=== PATIENT | female | born 1970 | race Caucasian/White ===

== ENCOUNTER 2016-09-10 16:30 | Emergency (ER) | payer OTHER ==
[2016-09-10 16:42] VITALS: BP 148/105
--- NOTE | 2016-09-10 17:30 | UC ---
Respiratory Complaint HPI - HPI Summary HPI Summary: 45 year old female with complaints of fever, cough, chest congestion and sore throat for 2 weeks. She is feeling worse today, chills at times. Cough has become harsh and causing her to vomit. She is tearful stating stating her energy is low. She denies chest pain or difficulty breathing Heavy everyday smoker - History of Current Complaint Chief Complaint: UCRespiratory Stated Complaint: COUGH,ST,CONGESTION Time Seen by Provider: 09/10/16 16:42 Hx Obtained From: Patient ?: No Onset/Duration: Gradual Onset, Lasting Weeks - 2, Worse Since - yesterday and today Severity Initially: Mild Severity Currently: Severe Pain Scale Used: 0-10 Numeric - 9 - she is tearful with complaints of general illness Character: Cough: Productive Aggravating Factors: Exertion, Deep Breaths, Recumbent Position Alleviating Factors: Nothing Associated Signs And Symptoms: Positive: Fever, Chills, Wheezing, URI, Nasal Congestion, Sinus Discomfort. Negative: Dyspnea, Pleuritic Chest Pain, Hemoptysis, Dizziness, Calf Pain, Calf Swelling, Edema, Hoarseness - Risk Factors Pulmonary Embolism Risk Factors: Smoking Cardiac Risk Factors: Smoking Pseudomonas Risk Factors: Negative Tuberculosis Risk Factors: Smoking - Allergies/Home Medications Allergies/Adverse Reactions: Allergies Allergy/AdvReac Type Severity Reaction Status Date / Time Levofloxacin [From Levaquin] Allergy Intermediate See Comment Verified 09/10/16 16:43 PMH/Surg Hx/FS Hx/Imm Hx Previously Healthy: Yes Endocrine History Of: Denies: Diabetes, Thyroid Disease Cardiovascular History Of: Reports: Hypertension Denies: Cardiac Disorders, Pacemaker/ICD Respiratory History Of: Denies: COPD, Asthma GI/ History Of: Denies: Ulcer, Kidney Stones, Renal Disease Neurological History Of: Reports: Migraine Psychological History Of: Reports: Anxiety - Surgical History Surgical History: Yes Surgery Procedure, Year, and Place: hysteroscopy, laparoscopy, hysterectomy ( 2005), D&C - Family History Known Family History: Positive: Hypertension Negative: Diabetes - Social History Occupation: Employed Full-time Lives: With Family Alcohol Use: None 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 Substance Use Type: None Substance Use Comment - Amount & Last Used: STOPPED 06/14/15 Smoking Status (MU): Light Every Day Tobacco Smoker Type: Cigarettes Amount Used/How Often: 1/2 PPD Length of Time of Smoking/Using Tobacco: 28 YEARS Have You Smoked in the Last Year: Yes When Did the Patient Quit Smoking/Using Tobacco: about a week ago Cessation Counseling: Counseled 3+Min - 10 Min - she will consider quiting - Immunization History Most Recent Tetanus Shot: 8 yrs ago Review of Systems Constitutional: Chills, Fatigue Skin: Negative Eyes: Negative ENT: Sore Throat, Nasal Discharge Respiratory: Cough Cardiovascular: Negative Gastrointestinal: Negative Genitourinary: Negative Motor: Negative Neurovascular: Negative Musculoskeletal: Myalgia Neurological: Headache Psychological: Negative All Other Systems Reviewed And Are Negative: Yes Physical Exam Triage Information Reviewed: Yes Appearance: Well-Nourished, Ill-Appearing - tearful, Pain Distress - tearful Vital Signs: Initial Vital Signs Temp 100.8 F 09/10/16 16:39 Pulse 116 09/10/16 16:39 Resp 18 09/10/16 16:39 BP 148/105 09/10/16 16:39 Pulse Ox 99 09/10/16 16:39 Vital Signs Reviewed: Yes Eyes: Positive: Conjunctiva Clear. Negative: Discharge ENT: Positive: Pharyngeal erythema, Nasal congestion, Nasal drainage - thin yellow and significant post nasal mucus, TMs normal, Tonsillar swelling - 1+ bilateral, Other: - mod maxillary sinus pain and pressure with palpation Neck: Positive: Supple, Nontender, Enlarged Nodes @ - mild bilateral ac Respiratory: Positive: Decreased breath sounds, Wheezing - scattered throughout , Other: - harsh wet cough noted on exam Cardiovascular: Positive: RRR, No Murmur Musculoskeletal: Positive: Strength Intact, ROM Intact Neurological: Positive: Alert, Muscle Tone Normal Psychological: Positive: Age Appropriate Behavior - pleasant and cooperative throughout exam, Consolable Skin: Negative: rashes, breakdown UC Diagnostic Evaluation - Laboratory O2 Sat by Pulse Oximetry: 99 Respiratory Course/Dx - Course Course Of Treatment: chest xray. rapid strep. duo-nebulizer treatment - Differential Dx/Diagnosis Differential Diagnosis/HQI/PQRI: Bronchitis, Lower Resp Infection, Sinusitis Provider Diagnoses: Acute bronchitis. sinusitis Discharge - Discharge Plan Condition: Stable Disposition: HOME Prescriptions: Albuterol HFA INHALER* [Ventolin HFA Inhaler*] 1 - 2 puff INH Q4H PRN #1 mdi PRN Reason: cough or wheezing Azithromycin TAB* [Zithromax TAB (Z-PRECIOUS)*] 250 mg PO .Z-PRECIOUS INSTRUCTIONS #6 tab predniSONE TAB* [Deltasone TAB*] 40 mg PO DAILY #10 tab Patient Education Materials: Acute Bronchitis (ED), Sinusitis (ED) Additional Instructions: PLEASE STOP SMOKING
[2016-09-10] MEDS ORDERED: Albuterol/Ipratropium NEB.SOL* Albuterol 2.5 MG/Ipratropium 0.5 MG 3 ML INH ONE (17:33)
--- NOTE | 2016-09-10 17:59 | RAD ---
HISTORY: Cough and fever COMPARISONS: None VIEWS: 2: Frontal dual-energy and lateral views of the chest. FINDINGS: CARDIOMEDIASTINAL SILHOUETTE: The cardiomediastinal silhouette is normal. GABRIELA: The gabriela are normal. PLEURA: The costophrenic angles are sharp. No pleural abnormalities are noted. LUNG PARENCHYMA: The lungs are clear. ABDOMEN: The upper abdomen is clear. There is no subphrenic gas. BONES AND SOFT TISSUES: No bone or soft tissue abnormalities are noted. OTHER: None. IMPRESSION: NO ACTIVE CARDIOPULMONARY DISEASE.
== END 2016-09-10 18:40 | disposition home or self-care (01) ==
LOC: UCEAST 16:30
DX: J20.9 Acute bronchitis, unspecified (principal); J32.9 Chronic sinusitis, unspecified; F17.210 Nicotine dependence, cigarettes, uncomplicated; Z88.1 Allergy status to other antibiotic agents; Z87.898 Personal history of other specified conditions
CPT/HCPCS: 71020; 87651; 99212; A9270-GY; G0463

== ENCOUNTER 2016-12-04 12:48 | Emergency (ER) | payer OTHER ==
[2016-12-04 14:14] VITALS: BP 142/93
--- NOTE | 2016-12-04 14:18 | UC ---
UC General HPI - HPI Summary HPI Summary: complaint of needing a medication refill she is in btween PCP-Dr Soni-discharged from practice looking for new PCP takes klonopin for anxiety and usually takes 2-3 per day- has been on medication for approx 5 years last dose of kloniopin yesterday using hydroxyzine to sleep anxiety level today is high due to lack of medication concerned about not having medication - stress level high has to work tomorrow and concerned she can't without gerald medication denies depression and suicidal ideation no history of suicide attempts - History of Current Complaint Chief Complaint: UCMedRefill Stated Complaint: MED REFILL Time Seen by Provider: 12/04/16 13:39 Hx Obtained From: Patient - Allergy/Home Medications Allergies/Adverse Reactions: Allergies Allergy/AdvReac Type Severity Reaction Status Date / Time Levofloxacin [From Levaquin] Allergy Intermediate See Comment Verified 12/04/16 14:14 PMH/Surg Hx/FS Hx/Imm Hx Previously Healthy: Yes Endocrine History Of: Denies: Diabetes, Thyroid Disease Cardiovascular History Of: Reports: Hypertension Denies: Cardiac Disorders, Pacemaker/ICD Respiratory History Of: Denies: COPD, Asthma GI/ History Of: Denies: Ulcer, Kidney Stones, Renal Disease Neurological History Of: Reports: Migraine Psychological History Of: Reports: Anxiety Other History Of: Hepatitis C - Surgical History Surgical History: Yes Surgery Procedure, Year, and Place: hysteroscopy, laparoscopy, hysterectomy ( 2005), D&C - Family History Known Family History: Positive: Hypertension Negative: Cardiac Disease, Diabetes - Social History Occupation: Employed Full-time Alcohol Use: None 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 Substance Use Type: None Substance Use Comment - Amount & Last Used: STOPPED 06/14/15 Smoking Status (MU): Light Every Day Tobacco Smoker Type: Cigarettes Amount Used/How Often: 1/2 PPD Length of Time of Smoking/Using Tobacco: 28 YEARS Have You Smoked in the Last Year: Yes When Did the Patient Quit Smoking/Using Tobacco: about a week ago Cessation Counseling: Patient Advised to Stop - Immunization History Most Recent Tetanus Shot: 8 yrs ago Review of Systems Constitutional: Negative Skin: Negative Eyes: Negative ENT: Negative Respiratory: Negative Cardiovascular: Negative Gastrointestinal: Negative Genitourinary: Negative Motor: Negative Neurovascular: Negative Musculoskeletal: Negative Neurological: Negative Psychological: Negative All Other Systems Reviewed And Are Negative: Yes Physical Exam Triage Information Reviewed: Yes Appearance: Well-Appearing, No Pain Distress, Well-Nourished Vital Signs: Initial Vital Signs Temp 97.8 F 12/04/16 14:09 Pulse 98 12/04/16 14:09 Resp 20 12/04/16 14:09 BP 142/93 12/04/16 14:09 Pulse Ox 99 12/04/16 14:09 Vital Signs Reviewed: Yes Eyes: Positive: Conjunctiva Clear ENT: Positive: Pharynx normal, TMs normal Neck: Positive: No Lymphadenopathy Respiratory: Positive: Lungs clear, Normal breath sounds, No respiratory distress Cardiovascular: Positive: RRR, No Murmur, Pulses Normal Abdomen Description: Positive: Nontender, Soft Bowel Sounds: Positive: Present Musculoskeletal: Positive: No Edema Neurological: Positive: Alert Psychological Exam: Normal Psychological: Positive: Other: - good eye contact, well groomed, appropriate eye contact Skin Exam: Normal Course/Dx - Course Course Of Treatment: exam completed. no hx of suicide attempts, suicidal ideation. will rx klonopin for 7 days - Differential Dx - Multi-Symptom Provider Diagnoses: anxiety Discharge - Discharge Plan Condition: Stable Disposition: HOME Prescriptions: Clonazepam [Klonopin] 2 mg PO TID PRN #21 tab MDD 3 PRN Reason: Anxiety - Severe Patient Education Materials: Anxiety (ED) Forms: *Work Release Referrals: David Soni MD [Primary Care Provider] - Additional Instructions: Your blood pressure is elevated. Please contact your primary care provider within 1 day -4 weeks for further evaluation. Restart your klonopin as needed and continue to find a new primary care provider. Please review your discharge instructions. If your symptoms do not improve please call your primary care provider or return to urgent care.
== END 2016-12-04 14:48 | disposition home or self-care (01) ==
LOC: UCEAST 12:48
DX: F41.9 Anxiety disorder, unspecified (principal); I10 Essential (primary) hypertension; F17.210 Nicotine dependence, cigarettes, uncomplicated
CPT/HCPCS: 99212; G0463

== ENCOUNTER 2016-12-29 10:17 | Emergency (ER) | payer OTHER ==
[2016-12-29 10:45] VITALS: BP 120/89
--- NOTE | 2017-01-09 15:01 | UC ---
juvenal Bernabe Timothy, scribed for Silvia Vale MD on 12/29/16 at 1153 . General HPI - HPI Summary HPI Summary: Emperatriz Torres is a 46 yo female presenting to [facility] in need of a refill for her Rx for clonazepam 1 mg 2 tab PO up to TID for anxiety. Pt states she received a refill in the ER 12/21/16, however does not have an appointment with her PCP until 01/03/17 and took her last pill last night. She is not in any current pain. Pt denies any suicidal or homicidal ideation. Her MHx includes HTN , migraine, hysterectomy, panic disorder, anxiety, Hep C. Her PCP is [facility]. - History of Current Complaint Chief Complaint: UCMedRefill Stated Complaint: REQUIRED MED REFILL PLEASE Time Seen by Provider: 12/29/16 12:23 Hx Obtained From: Patient Onset/Duration: Sudden Onset, Lasting Days, Still Present Timing: Constant Onset Severity: Moderate Current Severity: Moderate Pain Intensity: 0 Character: anxiety, needs meds Aggravating: nothing Alleviating: nothing Associated Signs & Symptoms: Positive: Agitation, Other - anxiety. Negative: Chest Pain, SOB - Allergy/Home Medications Allergies/Adverse Reactions: Allergies Allergy/AdvReac Type Severity Reaction Status Date / Time Levofloxacin [From Levaquin] Allergy Intermediate See Comment Verified 12/29/16 10:45 Home Medications: Home Medications cloNIDine TAB* [Catapres 0.1 MG TAB*] 0.1 mg PO TID 12/29/16 [History Confirmed 12/29/16] PMH/Surg Hx/FS Hx/Imm Hx Endocrine History Of: Denies: Diabetes, Thyroid Disease Cardiovascular History Of: Reports: Hypertension Denies: Cardiac Disorders, Pacemaker/ICD Respiratory History Of: Denies: COPD, Asthma GI/ History Of: Denies: Ulcer, Kidney Stones, Renal Disease Neurological History Of: Reports: Migraine Psychological History Of: Reports: Anxiety - panic disorder Other History Of: Hepatitis C - Surgical History Surgical History: Yes Surgery Procedure, Year, and Place: hysteroscopy, laparoscopy, hysterectomy ( 2005), D&C - Family History Known Family History: Positive: Hypertension, Other - CVA Negative: Cardiac Disease, Diabetes - Social History Alcohol Use: None Alcohol Amount: last drink few months ago Substance Use Type: Prescribed Substance Use Comment - Amount & Last Used: STOPPED 06/14/15 Smoking Status (MU): Heavy Every Day Tobacco Smoker Type: Cigarettes Amount Used/How Often: 1ppd Length of Time of Smoking/Using Tobacco: 28 YEARS Have You Smoked in the Last Year: Yes When Did the Patient Quit Smoking/Using Tobacco: about a week ago - Immunization History Most Recent Tetanus Shot: 8 yrs ago Review of Systems Constitutional: Negative Skin: Negative Eyes: Negative ENT: Negative Respiratory: Negative Cardiovascular: Negative Gastrointestinal: Negative Genitourinary: Negative Motor: Negative Neurovascular: Negative Musculoskeletal: Negative Neurological: Negative Psychological: Anxious All Other Systems Reviewed And Are Negative: Yes Physical Exam Triage Information Reviewed: Yes Appearance: No Pain Distress, Well-Nourished, Ill-Appearing Vital Signs: Initial Vital Signs Temp 98.1 F 12/29/16 10:39 Pulse 86 12/29/16 10:39 Resp 16 12/29/16 10:39 BP 120/89 12/29/16 10:39 Pulse Ox 99 12/29/16 10:39 Vital Signs Reviewed: Yes Eyes: Positive: Conjunctiva Clear. Negative: Discharge ENT: Positive: Hearing grossly normal. Negative: Muffled/hoarse voice Neck: Positive: Supple, Nontender Respiratory: Positive: Lungs clear, Normal breath sounds, No respiratory distress Cardiovascular: Positive: RRR, No Murmur, Pulses Normal, Brisk Capillary Refill Abdomen Description: Positive: Nontender, Soft. Negative: Distended, Guarding, McBurney's Point Tenderness, Peritoneal Signs Bowel Sounds: Positive: Present Musculoskeletal: Positive: Strength Intact, ROM Intact Neurological: Positive: Alert, Muscle Tone Normal Psychological: Positive: Age Appropriate Behavior, Other: - anxious Skin Exam: Normal Skin: Negative: rashes Course/Dx - Course Course Of Treatment: Emperatriz Overton is a 46 yo female presenting to [facility] for a refill Rx of clonazepam before her PCP appointment 01/03/17 as she ran out last night. Her last refill was by [facility]. I stop consulted and confirms that pt should have run out of meds now, and that she is taking that high dose of clonazepam. Her medication list was reviewed this visit. She has agrred to a contract for safety. She was counseled that her current dosage of clonazepam is extremely large. After clinical examination she will be discharged home with panic disorder and anxiety with appropriate instructions. Pt advised that she cannot use urgent care for a med refill for clonazepam again. - Differential Dx - Multi-Symptom Differential Diagnoses: Metabolic Abnormality, Other - anxiety, panic disorder Provider Diagnoses: panic disorder, anxiety, medication refill, elevated BP without dx of HTN Discharge - Discharge Plan Condition: Stable Disposition: HOME Prescriptions: clonazePAM TAB(*) [Klonopin TAB(*)] 2 mg PO TID PRN #30 tab MDD 6 PRN Reason: Anxiety - Severe Patient Education Materials: Clonazepam (By mouth), Panic Disorder (ED), Anxiety (ED) Referrals: [facility] [Provider Group] - 5 Days Additional Instructions: Please keep your appointment with [facility] 01/03/17. Return to urgent care or the emergency department with any new or recurring symptoms. The documentation as recorded by the juvenal chavez Timothy accurately reflects the service I personally performed and the decisions made by me, Silvia Vale MD.
== END 2016-12-29 12:36 | disposition home or self-care (01) ==
LOC: UCEAST 10:17
DX: F41.0 Panic disorder [episodic paroxysmal anxiety] (principal); Z76.0 Encounter for issue of repeat prescription; R03.0 Elevated blood-pressure reading, without diagnosis of hypertension; G43.909 Migraine, unspecified, not intractable, without status migrainosus; Z88.1 Allergy status to other antibiotic agents; Z86.19 Personal history of other infectious and parasitic diseases; Z90.710 Acquired absence of both cervix and uterus; F17.210 Nicotine dependence, cigarettes, uncomplicated
CPT/HCPCS: 99212; G0463

== ENCOUNTER 2018-10-10 12:10 | Day surgery (SDC) | payer OTHER ==
[~2018-10-10 12:10] MED LIST: Buffered Lidocaine 1% SYRIN* 1 ML/SYRINGE INTRADERM ONE; Dexamethasone IV* 4 MG/ML 1 ML (4 MG) IV SLOW PU ONE; DiMENhydriNATE IV* 50 MG/ML VIAL IV PUSH PRN; Famotidine IV* 10 MG/ML 2 ML (20 mg) IV ONE; Lactated Ringers 1000 ML Bag* 1,000 ML IV SCH; Levalbuterol 0.63MG/3ML NEB* UNIT OF USE INH ONE; Levalbuterol 0.63MG/3ML NEB* UNIT OF USE INH PRN; Naloxone* 0.4 MG/ML 1 ML VIAL IV PRN; Ondansetron TAB* 4 MG PO ONE; PROCHLORPERAZINE INJ 5 MG/ML 2 ML VIAL IV PRN; fentaNYL* 50 MCG/ML 2 ML VIAL (100 MCG VIAL) IV PRN; oxyCODONE/Acetamin 5/325 MG* TAB PO PRN
[2018-10-10] MEDS ORDERED: Dexamethasone IV* 4 MG/ML 1 ML (4 MG) ONE (12:26)
[2018-10-10] MEDS ORDERED: Famotidine IV* 10 MG/ML 2 ML (20 mg) ONE (12:26)
[2018-10-10] MEDS ORDERED: Levalbuterol 0.63MG/3ML NEB* UNIT OF USE INH ONE (12:27)
[2018-10-10] MEDS ORDERED: Ondansetron ODT TAB* 4 MG ONE (12:27)
[2018-10-10] MEDS ORDERED: Atracurium* 10 MG/ML 10 ML VIAL ONE (13:29)
[2018-10-10] MEDS ORDERED: Midazolam* 1 MG/ML 5 ML VIAL (5 MG) ONE (13:29)
[2018-10-10] MEDS ORDERED: fentaNYL* 50 MCG/ML 2 ML VIAL (100 MCG VIAL) ONE (13:29)
[2018-10-10] MEDS ORDERED: Glycopyrrolate IV* 0.2 MG/ML 1 ML VIAL ONE (14:20)
[2018-10-10] MEDS ORDERED: Lidocaine 2% PF * 5 ML VIAL ONE (14:20)
[2018-10-10] MEDS ORDERED: Neostigmine Methylsulfate* 1 MG/ML 10 ML VIAL (1 mg/ml) ONE (14:20)
[2018-10-10] MEDS ORDERED: hydrALAZINE IV* 20 MG/ML VIAL ONE (14:20)
[2018-10-10] MEDS ORDERED: Propofol* 10 MG/ML 20 ML BTL ONE (14:20)
[2018-10-10] MEDS ORDERED: Metoprolol Tartrate IV* 1 MG/ML 5 ML VIAL ONE (14:21)
[2018-10-10 17:18] VITALS: BP 133/92
--- NOTE | 2018-10-10 19:53 | PRO ---
CC: Yoli Bustos MD * DATE OF PROCEDURE: 10/10/18 - ENDO PROCEDURE: Colonoscopy - incomplete due to poor prep. REFERRING PROVIDER: Yoli Bustos MD INDICATIONS: The patient reports intermittent rectal bleeding. She says that her mother has a history of polyps. No other family history of colorectal cancer or polyps. MEDICATIONS: Given by Anesthesia. DESCRIPTION OF PROCEDURE: Full disclosure of risks was reviewed with the patient as detailed on the consent form. The patient was placed in the left lateral decubitus position and monitored with continuous pulse oximetry, capnography, interval blood pressure monitoring, and direct observation. After anorectal examination was performed, the pediatric colonoscope was inserted into the rectum and advanced to the level of the transverse colon. Procedure was aborted due to very poor prep. Findings and interventions are described below. FINDINGS: Anorectal exam was unremarkable. Scope was slowly and carefully advanced into the rectum. Very poor prep was noted with thick liquid and small pieces of solid stool. Scope was advanced to the transverse colon and then procedure was aborted due to worsening of prep as scope was moved more proximally in the colon. On withdrawal at approximately 20 to 25 cm, there was a very large broad-based polyp. This polyp likely measured in the 1.5 to 2 cm range. Biopsies obtained from this polyp. Resection was not attempted given very large amount of liquid stool surrounding the polyp. Scope was withdrawn from the patient. The patient tolerated the procedure well and was recovered in the GI recovery area. IMPRESSION: 1. Incomplete colonoscopy to transverse colon. Procedure aborted due to very poor prep. 2. Large rectal polyp seen at around 25 cm. I am a bit concern that this polyp may have some more advanced features based on its appearance. Biopsies obtained. Attempts not made to resect polyp given very poor prep. FOLLOWUP: 1. We will await pathology. 2. We will plan for repeat colonoscopy with extended prep under anesthesia. We will hold off on scheduling until the results from the polyp biopsy have returned. There is a potential that certain findings may impact the colonoscopy plan. Thank you very much for this referral. [id number]/[facility] #: [id number] MARILUZ
--- NOTE | 2018-10-10 20:43 | PRO ---
CC: Dr. Yoli Bustos * DATE OF PROCEDURE: 10/10/18 - ENDO REFERRING PROVIDER: Yoli Bustos MD PROCEDURE: EGD with biopsy. INDICATIONS: The patient with multiple GI symptoms including pill dysphagia, dysgeusia, and reflux. The patient had stated at last visit that her reflux symptoms were a bit better. She did not feel the omeprazole seemed to help, although I did try to explain to her that her symptoms seemed a little bit better on the medicine. She wished to trial of the medicine. Today, she states that she has not noticed any change off of the Prilosec. MEDICATIONS GIVEN: By Anesthesia. DESCRIPTION OF PROCEDURE: Full disclosure of risks was reviewed with the patient as detailed on the consent form. The patient was placed in the left lateral decubitus position and monitored with continuous pulse oximetry, capnography, interval blood pressure monitoring, and direct observation. A bite -block was placed between the the patient's teeth. An adult gastroscope was then advanced into the mouth down the esophagus, into the stomach, and into the distal duodenum. Findings and interventions are described below. FINDINGS: Upper esophagus was normal in appearance. No rings or strictures noted. GE junction was mildly irregular with some textural change. This was located at around 35 cm. Biopsies obtained. Biopsies also obtained from the mid and proximal esophagus to rule out eosinophilic esophagitis, given the patient's dysphagia complaints. Scope was then advanced into the stomach. The stomach was examined in the forward and retroflex views. There was diffuse gastric erythema. CLOtest was obtained. Biopsies also obtained from the gastric antrum and body and sent for evaluation. In the antrum, there is a tiny nodule, which was biopsied. I suspect this was related to inflammation. Scope was then advanced into the duodenum to at least the third portion. Duodenal mucosa was mildly erythematous without any ulcers or erosions. There seemed to be some increased number of locules. Biopsies obtained to rule out celiac disease. Scope was withdrawn from the patient. The patient tolerated the procedure well and was recovered in the GI recovery area. IMPRESSION: 1. Complete upper endoscopy to the distal duodenum. 2. Mildly irregular Z-line at GE junction. 3. Diffuse gastric erythema and a tiny antral nodule. 4. Mild duodenal erythema. FOLLOWUP: 1. Await pathology. 2. Proceed with colonoscopy. Thank you very much for this referral. [id number]/[facility] #: [id number] MARILUZ
== END 2018-10-10 17:00 | disposition home or self-care (01) ==
LOC: ENDO 12:10
PROVIDERS: ATTEND Internal Medicine Gastroenterology
DX: K21.0 Gastro-esophageal reflux disease with esophagitis (principal); R43.2 Parageusia; R13.10 Dysphagia, unspecified; K22.70 Barrett's esophagus without dysplasia; K31.89 Other diseases of stomach and duodenum; K62.5 Hemorrhage of anus and rectum; D12.8 Benign neoplasm of rectum; K29.50 Unspecified chronic gastritis without bleeding; I10 Essential (primary) hypertension; F32.9 Major depressive disorder, single episode, unspecified; F43.10 Post-traumatic stress disorder, unspecified; B19.20 Unspecified viral hepatitis C without hepatic coma; F17.210 Nicotine dependence, cigarettes, uncomplicated; Z83.71 Family history of colonic polyps; Z88.1 Allergy status to other antibiotic agents; Z79.899 Other long term (current) drug therapy
CPT/HCPCS: 87077; 88305; 88342; A9270-GY; J0360; J1100; J2250; J2704; J2710; J3010; J3490

== ENCOUNTER → 2019-01-02 10:00 | Day surgery (SDC) | payer OTHER ==
[~2019-01-02 10:00] MED LIST changes: +Atracurium* 10 MG/ML 10 ML VIAL ONE; +Dexamethasone IV* 4 MG/ML 1 ML (4 MG) ONE; +EPINEPHrine SYR 0.1MG/ML* SYRINGE ONE; +Famotidine IV* 10 MG/ML 2 ML (20 mg) ONE; +Glycopyrrolate IV* 0.2 MG/ML 1 ML VIAL ONE; +KETAMINE HCL* 50 MG/ML 10 ML VIAL ONE; -Levalbuterol 0.63MG/3ML NEB* UNIT OF USE INH ONE; -Levalbuterol 0.63MG/3ML NEB* UNIT OF USE INH PRN; +Lidocaine 2% PF * 5 ML VIAL ONE; +Metoprolol Tartrate IV* 1 MG/ML 5 ML VIAL ONE; +Midazolam* 1 MG/ML 5 ML VIAL (5 MG) ONE; +Morphine 4 MG/ML VIAL (1 ml) 4 MG/ML VIAL ONE; +Neostigmine Methylsulfate* 1 MG/ML 10 ML VIAL (1 mg/ml) ONE; +Ondansetron ODT TAB* 4 MG ONE; +PROCHLORPERAZINE INJ 5 MG/ML 2 ML VIAL ONE; +Propofol* 10 MG/ML 20 ML BTL ONE; +fentaNYL* 50 MCG/ML 2 ML VIAL (100 MCG VIAL) ONE; +hydrALAZINE IV* 20 MG/ML VIAL ONE
[2019-01-02 16:22] VITALS: BP 146/96
--- NOTE | 2019-01-04 00:46 | PRO ---
CC: Yoli Bustos MD * DATE OF PROCEDURE: 01/02/19 [facility] PROCEDURE: EGD with biopsy. REFERRING PROVIDER: Yoli Bustos MD. INDICATION: The patient underwent an EGD early October. She had multiple GI symptoms at that point including pill dysphagia, reflux, and dysgeusia. She was noted to have a mildly irregular Z-line. 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 The patient was due for a repeat colonoscopy under anesthesia, so the decision was made to repeat an EGD to obtain biopsies to confirm the diagnosis of intestinal metaplasia. MEDICATIONS: Given by Anesthesia. DESCRIPTION OF PROCEDURE: Full disclosure of risks was reviewed with the patient as detailed on the consent form. The patient was placed in the left lateral decubitus position and monitored with continuous pulse oximetry, capnography, interval blood pressure monitoring, and direct observation. A bite -block was placed between the patient's teeth. An adult gastroscope was then inserted into the patient's mouth and advanced down the esophagus into the stomach, into the distal duodenum. Findings and interventions are described below. FINDINGS: Esophagus was a normal tubular structure. There was a mildly irregular Z line noted. Biopsies obtained from 4 quadrants. Scope was then advanced into the stomach. Stomach was examined in the forward and retroflex views. There was a mild gastric erythema diffusely. No erosions or ulcers. Scope was then advanced into the duodenum to at least the third portion. Duodenal mucosa was normal in appearance. Scope was then withdrawn back to the esophagus. In the proximal esophagus at approximately 10 cm, there was 1 to 2 cm inlet patch noted. This was biopsied. The scope was then withdrawn from the patient. The patient tolerated the procedure well and recovered in the GI recovery area. IMPRESSION: 1. Complete upper endoscopy to distal duodenum. 2. Mildly irregular Z-line, rebiopsied in 4 quadrants. 3. Inlet patch seen in proximal esophagus, biopsied. FOLLOWUP: 1. Await pathology. 2. Continue PPI. Thank you very much for this referral. [id number]/[facility] #: [id number] [facility]
--- NOTE | 2019-01-04 01:20 | PRO ---
CC: Yoli Bustos MD.* PROCEDURE REPORT: DATE OF PROCEDURE: 01/02/19 PROCEDURE: Colonoscopy with hot snare polypectomy, clip placement x1, and submucosal injection. REFERRING PROVIDER: Yoli Bustos MD. INDICATION: The patient has reported rectal bleeding. An attempted colonoscopy in October was limited due to poor prep. The scope was only advanced to the transverse colon. In the rectum there was noted to be a large polyp, which was biopsied and consistent with tubular adenoma. I scheduled for repeat colonoscopy with extended prep. MEDICATIONS GIVEN: By Anesthesia. DESCRIPTION OF PROCEDURE: Full disclosure of risks was reviewed with the patient as detailed on the consent form. The patient was placed in the left lateral decubitus position and monitored with continuous pulse oximetry, capnography, interval blood pressure monitoring, and direct observation. After anorectal examination was performed, the adult colonoscope was inserted into the rectum and slowly advanced forward to the level of the terminal ileum. Complete views of the cecum were obtained including the medial wall between the IC valve and the appendiceal orifice. Photodocumentation of landmarks obtained. Careful inspection was made as the colonoscope was withdrawn. Prep was good. Retroflexion was performed in the rectum. Findings and interventions are described below. FINDINGS: Anorectal exam was unremarkable. The scope was inserted into the rectum and slowly advanced forward. Procedure was modestly difficult. Abdominal pressure was used to help the scope advance forward. The cecum was able to be reached. Once in the cecum, the terminal ileum was intubated. The ileal mucosa was normal x5 cm. Scope was then withdrawn back into the cecum and then throughout the length of the colon. There was mild erythema and spontaneous bleeding in scattered small areas noted in the cecum and the right colon. Unclear if this represents inflammation versus prep effect versus barotrauma. Biopsies were obtained from the cecum and the right colon. Scope was then withdrawn further. No diverticulosis appreciated. Large polyp seen in the rectum. This polyp measured at least 2.5 cm. Initially, the polyp appeared to be sessile, although on further inspection there actually was a fairly wide and short pedicle. Multiple injections with used to help the submucosal listing agents with modest affect. Given concern for possible bleeding with polypectomy, the decision was made to use a poly loop. The poly loop was deployed around the base of the polyp. The snare was then used to gather the pedicle above the poly loops. Electrocautery was used to remove the polyp. No residual polyp seen at polypectomy site. One clip used to completely close the polypectomy site. Rectal polyp was removed in one complete piece. Small internal hemorrhoids were seen as the scope was removed in one piece. The patient tolerated the procedure well and was recovered in the GI recovery area. IMPRESSION: 1. Complete colonoscopy to terminal ileum. 2. Mild mucosal erythema and spontaneous friability seen in cecum and right colon. Unclear clinical significance. Biopsies obtained. 3. Large rectal polyp removed using poly loop and hot snare. Clip used to close polyp site. FOLLOWUP: 1. Await pathology. 2. We will likely plan for a repeat colonoscopy in 6 months depending on polyp results given the large nature of the polyp in a relatively young patient. Thank you very much for this referral. [id number]/COURTNEY #: [id number] MARILUZ
== END | disposition home or self-care (01) ==
LOC: OR 10:00
PROVIDERS: ATTEND Internal Medicine Gastroenterology
DX: K62.1 Rectal polyp (principal); K21.9 Gastro-esophageal reflux disease without esophagitis; R13.10 Dysphagia, unspecified; I10 Essential (primary) hypertension; F41.0 Panic disorder [episodic paroxysmal anxiety]; F32.9 Major depressive disorder, single episode, unspecified; F43.10 Post-traumatic stress disorder, unspecified; B19.20 Unspecified viral hepatitis C without hepatic coma
CPT/HCPCS: 88305; A9270-GY; J0171; J0360; J0780; J1100; J2250; J2270; J2704; J2710; J3010; J3490

== ENCOUNTER 2019-01-08 08:32 | Emergency (ER) | payer OTHER ==
[2019-01-08] MEDS ORDERED: NS 0.9% 1000 ML** 1,000 ML IV ONE (08:59)
--- NOTE | 2019-01-08 09:20 | ED ---
Complex/Multi-Sys Presentation - HPI Summary HPI Summary: Pt. is a 58 y.o female who presents to the ER for low back pain after she fell down steps in her home yesterday. Pt. states she slipped at the top of the steps and fell down the steps. Pt. denies striking her head or LOC. Pt. denies prior cp, sob, abd. pain, fever, V/D, urinary sxs. Pt. notes she has a hx of chronic back pain which has been exacerbated. Pt. denies numbness, tingling or weakness in legs. Denies bowel or bladder incontinence or retention. Symptoms are moderate in severity. Movement makes sxs worse. Nothing makes sxs better. Pt. has a hx of HTN and anxiety/depression. Pt. notes she did not take her BP medication today yet. - History Of Current Complaint Chief Complaint: EDMotorVehicleCrash Time Seen by Provider: 01/08/19 08:47 Hx Obtained From: Patient - Allergies/Home Medications Allergies/Adverse Reactions: Allergies Allergy/AdvReac Type Severity Reaction Status Date / Time levofloxacin [From Levaquin] Allergy Severe Restless Verified 01/02/19 10:37 leg syndrome PMH/Surg Hx/FS Hx/Imm Hx Previously Healthy: Yes Endocrine/Hematology History: Denies: Hx Diabetes, Hx Thyroid Disease Cardiovascular History: Reports: Hx Hypertension - ON MEDICATION FOR Denies: Hx Pacemaker/ICD Respiratory History: Denies: Hx Asthma, Hx Chronic Obstructive Pulmonary Disease (COPD) GI History: Reports: Hx Gastroesophageal Reflux Disease, Hx Irritable Bowel - POSSIBLY Denies: Hx Ulcer History: Denies: Hx Kidney Stones, Hx Renal Disease Musculoskeletal History: Reports: Other Musculoskeletal History - RSD Denies: Hx Back Problems Sensory History: Reports: Hx Contacts or Glasses - glasses Denies: Hx Hearing Aid Opthamlomology History: Reports: Hx Contacts or Glasses - glasses Neurological History: Reports: Hx Headaches - TWICE A WEEK, Hx Migraine - HX OF- TREATS WITH REST AND A DARK ROOM Psychiatric History: Reports: Hx Anxiety - panic disorder, Hx Depression - RECENTLY- ON MEDICATION FOR, Hx Panic Disorder - Cancer History Hx Chemotherapy: No - Surgical History Surgery Procedure, Year, and Place: laparoscopy, hysterectomy (2005), D&C. WISDOM TEETH EXTRACTED AGE 14 Hx Anesthesia Reactions: No Infectious Disease History: Yes Infectious Disease History: Reports: Hx Hepatitis - C Denies: Hx Clostridium Difficile, Hx Human Immunodeficiency Virus (HIV), Hx of Known/Suspected MRSA, Hx Shingles, Hx Tuberculosis, Hx Known/Suspected VRE, Hx Known/Suspected VRSA, History Other Infectious Disease, Traveled Outside the [place] in Last 30 Days - Family History Known Family History: Positive: Hypertension, Other - CVA Negative: Cardiac Disease, Diabetes - Social History Occupation: Employed Full-time Lives: With Family Alcohol Use: Daily Alcohol Amount: 6 PACK PER NIGHT Substance Use Type: Reports: Marijuana Substance Use Comment - Amount & Last Used: OCCASIONAL Smoking Status (MU): Heavy Every Day Tobacco Smoker Type: Cigarettes Amount Used/How Often: 1 PPD X 30 YEARS Length of Time of Smoking/Using Tobacco: 28 YEARS Have You Smoked in the Last Year: No Review of Systems Cardiovascular: Negative Negative: Palpitations, Chest Pain Positive: Shortness Of Breath Gastrointestinal: Negative Negative: Abdominal Pain, Vomiting, Diarrhea Positive: Other - Low back pain and diffuse rib pain Skin: Negative Neurological: Negative Negative: Headache, Weakness, Paresthesia, Numbness, Syncope All Other Systems Reviewed And Are Negative: Yes Physical Exam Triage Information Reviewed: Yes Vital Signs On Initial Exam: Initial Vitals Temp Pulse Resp BP Pulse Ox 97.6 F 141 20 175/151 97 01/08/19 08:34 01/08/19 08:34 01/08/19 08:34 01/08/19 08:34 01/08/19 08:34 Vital Signs Reviewed: Yes Appearance: Positive: Pain Distress - Pt. lying on bed, appears in pain but nontoxic. Skin: Positive: Warm, Dry Head/Face: Positive: Normal Head/Face Inspection Eyes: Positive: Normal, EOMI, OBIE, Conjunctiva Clear Dental: Positive: Other - dental decay Neck: Positive: Supple, Nontender - no midline tenderness Respiratory/Lung Sounds: Positive: Clear to Auscultation, Breath Sounds Present. Negative: Rales, Rhonchi, Wheezes Cardiovascular: Positive: Normal, RRR Abdomen Description: Positive: Nontender, Soft Musculoskeletal: Positive: Normal, Strength/ROM Intact, Other - Bilateral rib tenderness laterally. Diffuse lumbar tenderness. 5/5 strength in bilateral LEs. Right ankle without edema or reproducible bony tenderness. Neurological: Positive: Normal, Alert, Oriented to Person Place, Time, CN Intact II-III Psychiatric: Positive: Affect/Mood Appropriate Diagnostics - Vital Signs Vital Signs Temp Pulse Resp BP Pulse Ox 01/08/19 09:07 160/95 01/08/19 09:00 128 17 97 01/08/19 08:34 97.6 F 141 20 175/151 97 - Laboratory Result Diagrams: 01/08/19 09:26 01/08/19 09:26 Lab Statement: Any lab studies that have been ordered have been reviewed, and results considered in the medical decision making process. Complex Multi-Symp Course/Dx Course Of Treatment: Pt. presenting with main complaint of low back pain after a mechanical fall. Pt.'s HR was noted to be in the 140's and HTN. ECG done at 0859 shows a sinus tachycardia of 109bpm, normal axis, no ST elevation or depression. Will check basic labs and xrays. Pt. is c/o SOB but secondary to back pain. CBC unremarkable. CMP shows mild elevation in liver enzymes and elevated ddimer. Pt. has remained tachycardic. Will obtain CTA to r/o PE. CTA negative for acute findings. Pt. feeling a bit better after pain medication. BP continue to be elevated and pt. given morning home med of catapres. Xrays negative for acute findings per radiology. Pt. ambulatory to bathroom. Will dc home with naproxen. Apply warm compresses to back. Close f.u with pcp in 2-3 days. To return to ER if sxs change or worsen. - Diagnoses Provider Diagnoses: Fall, Hypertension, Lumbar strain Discharge - Sign-Out/Discharge Documenting (check all that apply): Patient Departure Patient Received Moderate/Deep Sedation with Procedure: No - Discharge Plan Condition: Improved Disposition: HOME Prescriptions: Naproxen [Naproxen 500 mg tab] 500 mg PO BID #20 tablet Patient Education Materials: Low Back Strain (ED) Referrals: Yoli Bustos MD [Primary Care Provider] - Additional Instructions: Schedule a close follow up appointment with PCP in 2-3 days Apply warm compresses to back Naproxen as directed Avoid heavy lifting Return to ER if symptoms change or worsen - Billing Disposition and Condition Condition: IMPROVED Disposition: Home
[2019-01-08 09:36] LABS: ABS Eosinophils 0.1 10^3/ul (0-0.6); ABS Lymphocytes 1.2 10^3/ul (1.0-4.8); ABS Monocytes 0.4 10^3/ul (0-0.8); Hematocrit 46 % (35-47); Hemoglobin 15.4 g/dL (12.0-16.0); Lymphocyte % 20.8 %; Mean Corpuscular HGB Conc 34 g/dL (31-36); Mean Corpuscular Hemoglobin 28 pg (27-31); Mean Corpuscular Volume 83 fL (80-97); Mean Platelet Volume 7.4 fL (7.4-10.4); Nucleated Red Blood Cells % 0.1; Platelet Count 252 10^3/uL (150-450); Red Blood Count 5.54 10^6 /uL (3.70-4.87); Red Cell Distribution Width 14 % (10.5-15); White Blood Count 5.7 10^3/uL (3.5-10.8)
[2019-01-08 09:48] LABS: Activated Partial Thrombo Time 31.2 seconds (26.0-36.3); INR 1.02 (0.82-1.09)
[2019-01-08] MEDS ORDERED: Morphine 4 MG/ML VIAL (1 ml) 4 MG/ML VIAL IV ONE (10:19)
[2019-01-08 10:33] LABS: Albumin 3.9 g/dL (3.2-5.2); Albumin/Globulin Ratio 1.1 (1-3); BUN/Creatinine Ratio 3.8 (8-20); Calcium 8.9 mg/dL (8.6-10.3); EGFR African American 148.4 (>60); EGFR Non-African American 122.6 (>60); Globulin 3.6 g/dL (2-4); Potassium 3.6 mmol/L (3.5-5.0); Total Bilirubin 0.5 mg/dL (0.2-1.0); Total Protein 7.5 g/dL (6.4-8.9)
[2019-01-08] MEDS ORDERED: Iohexol 350* (CONTRAST) 500 ML MDV IV ONE (10:37)
[2019-01-08] MEDS ORDERED: Ondansetron INJ* 2 MG/ML VIAL IV ONE (11:41)
[2019-01-08] MEDS ORDERED: cloNIDine TAB* 0.1 MG PO ONE (12:20)
[2019-01-08] MEDS ORDERED: Ketorolac INJ* 30 MG/ML 1 ML VIAL IV PUSH ONE (12:20)
[2019-01-08 13:34] VITALS: BP 137/98
== END 2019-01-08 13:34 | disposition home or self-care (01) ==
LOC: ED 08:32
DX: S39.012A Strain of muscle, fascia and tendon of lower back, initial encounter (principal); W18.30XA Fall on same level, unspecified, initial encounter; Y92.9 Unspecified place or not applicable; I10 Essential (primary) hypertension
CPT/HCPCS: 36415; 71275; 72110; 80053; 83605; 84484; 85025; 85379; 85610; 85730; 93005; 96361; 96374; 96375; 99283; A9270-GY; J1885; J2270; J2405; Q9967

== ENCOUNTER 2019-03-04 09:58 | Inpatient (IN) | payer OTHER ==
[2019-03-04] MEDS ORDERED: NS 0.9% 1000 ML** 1,000 ML IV.FLUID IV ONE (10:29)
[2019-03-04] MEDS ORDERED: Piperacillin/Tazobac ADVAN(*) 3.375 GM in NS 0.9% 100 ML* 100 ML IVPB ONE (10:29)
[2019-03-04] MEDS ORDERED: Lorazepam PYXIS KEY PRN (10:30)
[2019-03-04] MEDS ORDERED: LORazepam INJ* 2 MG/ML 1 ML VIAL IV PUSH ONE (10:30)
[2019-03-04] MEDS ORDERED: Ondansetron INJ* 2 MG/ML VIAL IV ONE (10:30)
[2019-03-04] MEDS ORDERED: Lorazepam PYXIS KEY ONE (10:36)
[2019-03-04 11:01] LABS: Hematocrit 39 % (35-47); Hemoglobin 13.2 g/dL (12.0-16.0); Mean Corpuscular HGB Conc 34 g/dL (31-36); Mean Corpuscular Hemoglobin 28 pg (27-31); Mean Corpuscular Volume 83 fL (80-97); Mean Platelet Volume 6.9 fL (7.4-10.4); Platelet Count 211 10^3/uL (150-450); Red Blood Count 4.71 10^6 /uL (3.70-4.87); Red Cell Distribution Width 14 % (10-15); White Blood Count 10.1 10^3/uL (3.5-10.8)
[2019-03-04 11:10] LABS: Activated Partial Thrombo Time 28.7 seconds (26.0-38.0); INR 1.06 (0.82-1.09)
[2019-03-04 11:33] LABS: Albumin 3.7 g/dL (3.2-5.2); BUN/Creatinine Ratio 7.7 (8-20); C Reactive Protein 110.83 mg/L (<8.01); Calcium 8.6 mg/dL (8.6-10.3); EGFR African American 211.4 (>60); EGFR Non-African American 174.7 (>60); Globulin 3.6 g/dL (2-4); Potassium 3.5 mmol/L (3.5-5.0); Total Bilirubin 0.7 mg/dL (0.2-1.0); Total Protein 7.3 g/dL (6.4-8.9)
[2019-03-04 12:10] LABS: ABS Eosinophils 0.1 10^3/ul (0-0.6); ABS Lymphocytes 0.7 10^3/ul (1.0-4.8); ABS Neutrophils 8.3 10^3/ul (1.5-7.7); Eosinophil % 0.9 %; Lymphocyte % 6.5 %; Nucleated Red Blood Cells % 0.1
--- NOTE | 2019-03-04 14:36 | ED ---
HPI Febrile Illness - HPI Summary HPI Summary: Patient is a 48-year-old female with history of anxiety presenting to the ED with feeling of heart palpitations, generalized illness, fever and one episode of vomiting today. She also endorses a mild cough. Symptoms have been present times apparently 2 weeks and have been worsening. Fever and one episode of emesis was just today. She states she's had this in the past. she takes Klonopin for her anxiety, however has been out of this medication for quite some time. She states she is living in a hotel and is homeless right now. She also states she has not been eating well. Denies any dysphasia or odynophagia, chest pain, or abdominal pain. She does endorse some shortness of breath, which is worse with her anxiety. Denies any abdominal pain. Denies any urinary symptoms. She doesn't was back pain, tailbone pain from a fall 2 months ago. She states she continues to have this pain despite having several x -rays to rule out any fractures. She denies any sweats or chills. - History of Current Complaint Chief Complaint: EDFever Time Seen by Provider: 03/04/19 10:08 Hx Obtained From: Patient Onset/Duration: Traumatic Timing: Constant Temperature: 100.5 F Initial Severity: Moderate Current Severity: Moderate Pain Intensity: 0 Pain Scale Used: 0-10 Numeric Aggravating Factors: Nothing Alleviating Factors: Nothing Associated Signs and Symptoms: Negative - Risk Factors Pseudomonas Risk Factors: Negative Serious Bacterial Infection Risk Factors: Negative - Allergy/Home Medications Allergies/Adverse Reactions: Allergies Allergy/AdvReac Type Severity Reaction Status Date / Time levofloxacin [From Levaquin] Allergy Severe Restless Verified 01/02/19 10:37 leg syndrome Home Medications: Home Medications hydrOXYzine HCL TAB* [Atarax 10 MG TAB*] 10 mg PO BEDTIME 03/04/19 [History Confirmed 03/04/19] PMH/Surg Hx/FS Hx/Imm Hx Previously Healthy: Yes Endocrine/Hematology History: Denies: Hx Diabetes, Hx Thyroid Disease Cardiovascular History: Reports: Hx Hypertension - ON MEDICATION FOR Denies: Hx Pacemaker/ICD Respiratory History: Denies: Hx Asthma, Hx Chronic Obstructive Pulmonary Disease (COPD) GI History: Reports: Hx Gastroesophageal Reflux Disease, Hx Irritable Bowel - POSSIBLY Denies: Hx Ulcer History: Denies: Hx Kidney Stones, Hx Renal Disease Musculoskeletal History: Reports: Other Musculoskeletal History - RSD Denies: Hx Back Problems Sensory History: Reports: Hx Contacts or Glasses - glasses Denies: Hx Hearing Aid Opthamlomology History: Reports: Hx Contacts or Glasses - glasses Neurological History: Reports: Hx Headaches - TWICE A WEEK, Hx Migraine - HX OF- TREATS WITH REST AND A DARK ROOM Psychiatric History: Reports: Hx Anxiety - panic disorder, Hx Depression - RECENTLY- ON MEDICATION FOR, Hx Panic Disorder - Cancer History Hx Chemotherapy: No - Surgical History Surgery Procedure, Year, and Place: laparoscopy, hysterectomy (2005), D&C. WISDOM TEETH EXTRACTED AGE 14 Hx Anesthesia Reactions: No - Immunization History Hx Pertussis Vaccination: No Immunizations Up to Date: Yes Infectious Disease History: Yes Infectious Disease History: Reports: Hx Hepatitis - C Denies: Hx Clostridium Difficile, Hx Human Immunodeficiency Virus (HIV), Hx of Known/Suspected MRSA, Hx Shingles, Hx Tuberculosis, Hx Known/Suspected VRE, Hx Known/Suspected VRSA, History Other Infectious Disease, Traveled Outside the [place] in Last 30 Days - Family History Known Family History: Positive: Hypertension, Other - CVA Negative: Cardiac Disease, Diabetes - Social History Occupation: Unemployed Lives: Alone Alcohol Use: Daily Alcohol Amount: 6 PACK PER NIGHT Hx Substance Use: No Substance Use Type: Reports: Marijuana Substance Use Comment - Amount & Last Used: OCCASIONAL Hx Tobacco Use: Yes Smoking Status (MU): Heavy Every Day Tobacco Smoker Type: Cigarettes Amount Used/How Often: 1 PPD X 30 YEARS Length of Time of Smoking/Using Tobacco: 28 YEARS Have You Smoked in the Last Year: No Review of Systems Positive: Fever, Chills, Fatigue, Skin Diaphoresis Negative: Palpitations, Chest Pain Positive: Cough. Negative: Shortness Of Breath Positive: Vomiting, Nausea Genitourinary: Negative Positive: no symptoms reported, see HPI Negative: Arthralgia, Myalgia Neurological: Negative Positive: Anxious All Other Systems Reviewed And Are Negative: Yes Physical Exam Triage Information Reviewed: Yes Vital Signs On Initial Exam: Initial Vitals Temp Pulse Resp BP Pulse Ox 100.4 F 121 20 161/111 97 03/04/19 09:59 03/04/19 09:59 03/04/19 09:59 03/04/19 09:59 03/04/19 09:59 Vital Signs Reviewed: Yes Appearance: Positive: Ill-Appearing Skin: Positive: Warm, Skin Color Reflects Adequate Perfusion Head/Face: Positive: Normal Head/Face Inspection Eyes: Positive: EOMI, Conjunctiva Clear Neck: Positive: Supple, No Lymphadenopathy Respiratory/Lung Sounds: Positive: Clear to Auscultation, Breath Sounds Present Cardiovascular: Positive: RRR, Pulses are Symmetrical in both Upper and Lower Extremities Musculoskeletal: Positive: Strength/ROM Intact Neurological: Positive: Speech Normal Psychiatric: Positive: Affect/Mood Appropriate AVPU Assessment: Alert Diagnostics - Vital Signs Vital Signs Temp Pulse Resp BP Pulse Ox 03/04/19 13:16 116 13 96 03/04/19 12:59 116 25 128/98 94 03/04/19 12:28 115 20 146/104 95 03/04/19 11:38 100.1 F 121 20 155/112 100 03/04/19 10:42 20 03/04/19 09:59 100.4 F 121 20 161/111 97 - Laboratory Lab Results: Lab Results 03/04/19 03/04/19 03/04/19 Range/Units 10:50 10:50 10:50 WBC 10.1 (3.5-10.8) 10^3/uL RBC 4.71 (3.70-4.87) 10^6 /uL Hgb 13.2 (12.0-16.0) g/dL Hct 39 (35-47) % MCV 83 (80-97) fL MCH 28 (27-31) pg MCHC 34 (31-36) g/dL RDW 14 (10-15) % Plt Count 211 (150-450) 10^3/uL MPV 6.9 L (7.4-10.4) fL Neut % (Auto) 82.6 % Lymph % (Auto) 6.5 % Randolph % (Auto) 9.9 % Eos % (Auto) 0.9 % Baso % (Auto) 0.1 % Absolute Neuts (auto) 8.3 H (1.5-7.7) 10^3/ul Absolute Lymphs (auto) 0.7 L (1.0-4.8) 10^3/ul Absolute Monos (auto) 1.0 H (0-0.8) 10^3/ul Absolute Eos (auto) 0.1 (0-0.6) 10^3/ul Absolute Basos (auto) 0.0 (0-0.2) 10^3/ul Absolute Nucleated RBC 0.0 10^3/ul Nucleated RBC % 0.1 INR (Anticoag Therapy) 1.06 (0.82-1.09) APTT 28.7 (26.0-38.0) seconds D-Dimer, Quantitative Pending Sodium 132 L (135-145) mmol/L Potassium 3.5 (3.5-5.0) mmol/L Chloride 95 L (101-111) mmol/L Carbon Dioxide 28 (22-32) mmol/L Anion Gap 9 (2-11) mmol/L BUN 3 L (6-24) mg/dL Creatinine 0.39 L (0.51-0.95) mg/dL Est GFR ( Amer) 211.4 (>60) Est GFR (Non-Af Amer) 174.7 (>60) BUN/Creatinine Ratio 7.7 L (8-20) Glucose 146 H (70-100) mg/dL Lactic Acid (0.5-2.0) mmol/L Calcium 8.6 (8.6-10.3) mg/dL Total Bilirubin 0.70 (0.2-1.0) mg/dL AST 27 (13-39) U/L ALT 20 (7-52) U/L Alkaline Phosphatase 103 (34-104) U/L Troponin I 0.00 (<0.04) ng/mL C-Reactive Protein 110.83 H (<8.01) mg/L Total Protein 7.3 (6.4-8.9) g/dL Albumin 3.7 (3.2-5.2) g/dL Globulin 3.6 (2-4) g/dL Albumin/Globulin Ratio 1.0 (1-3) 03/04/19 Range/Units 10:50 WBC (3.5-10.8) 10^3/uL RBC (3.70-4.87) 10^6 /uL Hgb (12.0-16.0) g/dL Hct (35-47) % MCV (80-97) fL MCH (27-31) pg MCHC (31-36) g/dL RDW (10-15) % Plt Count (150-450) 10^3/uL MPV (7.4-10.4) fL Neut % (Auto) % Lymph % (Auto) % Randolph % (Auto) % Eos % (Auto) % Baso % (Auto) % Absolute Neuts (auto) (1.5-7.7) 10^3/ul Absolute Lymphs (auto) (1.0-4.8) 10^3/ul Absolute Monos (auto) (0-0.8) 10^3/ul Absolute Eos (auto) (0-0.6) 10^3/ul Absolute Basos (auto) (0-0.2) 10^3/ul Absolute Nucleated RBC 10^3/ul Nucleated RBC % INR (Anticoag Therapy) (0.82-1.09) APTT (26.0-38.0) seconds D-Dimer, Quantitative Sodium (135-145) mmol/L Potassium (3.5-5.0) mmol/L Chloride (101-111) mmol/L Carbon Dioxide (22-32) mmol/L Anion Gap (2-11) mmol/L BUN (6-24) mg/dL Creatinine (0.51-0.95) mg/dL Est GFR ( Amer) (>60) Est GFR (Non-Af Amer) (>60) BUN/Creatinine Ratio (8-20) Glucose (70-100) mg/dL Lactic Acid 1.8 (0.5-2.0) mmol/L Calcium (8.6-10.3) mg/dL Total Bilirubin (0.2-1.0) mg/dL AST (13-39) U/L ALT (7-52) U/L Alkaline Phosphatase (34-104) U/L Troponin I (<0.04) ng/mL C-Reactive Protein (<8.01) mg/L Total Protein (6.4-8.9) g/dL Albumin (3.2-5.2) g/dL Globulin (2-4) g/dL Albumin/Globulin Ratio (1-3) Result Diagrams: 03/04/19 10:50 03/04/19 10:50 Lab Statement: Any lab studies that have been ordered have been reviewed, and results considered in the medical decision making process. Course/Dx - Course Course Of Treatment: On physical examination to the ED, the patient appears anxious. She does admit to withdrawal sxs. She is fairly pale, however nondiaphoretic and nontoxic in appearing. She states she recently had an episode of vomiting just prior to arrival. She says she's been out of her Klonopin for quite some time if this is contributing to her anxiety symptoms. On arrival into the ED, the patient is noted to me septic criteria with 100.1 temp, tachycardic at 120 and respirations 22. She is given fluids, zosyn for fever or unknown origin and ativan 1mg. Dimer at 306. CTA ordered. Remains tachy at 115 on re-examination and febrile at 100.5. I have asked hospitalist to examine the patient for further evaluation. - Febrile Illness Differential Diagnoses: Bacteremia, Cellulitis, Fever of Unknown Origin, Medication Reaction, Sepsis - Diagnoses Provider Diagnoses: Tachycardia, Withdrawal from benzodiazepine, Opiate withdrawal, Vomiting - Critical Care Time Critical Care Time: 30-74 min Discharge - Sign-Out/Discharge Documenting (check all that apply): Patient Departure Patient Received Moderate/Deep Sedation with Procedure: No - Discharge Plan Condition: Fair Disposition: ADMITTED TO [facility] Referrals: Yoli Bustos MD [Primary Care Provider] - - Billing Disposition and Condition Condition: FAIR Disposition: Admitted to [facility]
[2019-03-04] MEDS ORDERED: Ketorolac INJ* 30 MG/ML 1 ML VIAL IV PUSH ONE (15:35)
[2019-03-04 16:09] LABS: Urine Appearance Clear; Urine Bacteria Absent (Absent); Urine Bilirubin Negative (Negative); Urine Blood 1+ (Negative); Urine Color Yellow; Urine Glucose Negative (Negative); Urine Ketones Trace (Negative); Urine Nitrite Negative (Negative); Urine Protein Negative (Negative); Urine Red Blood Cell Trace(0-2/hpf) (Absent); Urine Specific Gravity 1.005 (1.010-1.030); Urine Urobilinogen Negative (Negative); Urine White Blood Cell Trace(0-5/hpf) (Absent)
[2019-03-04] MEDS ORDERED: Iohexol 350* (CONTRAST) 500 ML MDV IV ONE (16:36)
[2019-03-04] MEDS ORDERED: NS 0.9% 1000 ML** 1,000 ML IV SCH (16:45)
[2019-03-04] MEDS ORDERED: hydrOXYzine HCL TAB* 10 MG PO PRN (16:46)
[2019-03-04] MEDS ORDERED: Dicyclomine CAP* 10 MG PO PRN (16:47)
[2019-03-04] MEDS ORDERED: Ondansetron INJ* 2 MG/ML VIAL IV PRN (17:11)
--- NOTE | 2019-03-04 19:38 | HP ---
HISTORY OF PRESENT ILLNESS: DATE OF ADMISSION: 03/04/19 PRIMARY CARE PROVIDER: Kelly Huber NP MANAGER UTILIZATION REVIEW: Ladonna Chavez, mother CODE STATUS: Full. CHIEF COMPLAINT: Fever, body aches. SOURCE OF INFORMATION: HPI is obtained from chart, interview of patient, she is a fair historian. HISTORY OF PRESENT ILLNESS: This is a [id number] with past medical history of distant polysubstance abuse, currently on prescription benzodiazepines with escalation of dose; daily alcohol user and chronic pain off and on opiates; hepatitis C, never treated for a distant IV drug use (last use greater than 20 years ago); anxiety; depression; GERD; tobacco use and likely COPD, who presents with numerous somatic complaints. The patient is a fair historian and generally presents overall anxious and tremulous, but she reports that she fell down the stairs about a month ago and essentially has chronic pain ever since. She states that since her fall, she has needed more pain medications, which she has gotten from primary care off and on, although she has inappropriately escalated the doses and has been unable to obtain adequate pain control. At the time that she fell, she had right rib pain. She had negative x-rays at that time in early January 2018 and was discharged with pain control, although the patient reports she has basically been laying in a hotel room and not moving very much ever since. She also reports that one day prior to presentation she has had fevers, chills, muscle aches and one episode of vomiting and diarrhea. The combination of the pain, the fevers, chills, vomiting and diarrhea prompted her to call the ambulance. She felt that she was unable to care for herself in the home. Of note, the patient was recently evicted and has been struggling with homelessness, currently in a hotel room at the [facility] through an arrangement with the [facility]. [place] Prescription Monitoring Program shows that clonazepam a 28 day supply was prescribed on 02/05/19. The patient reports that she ran out about 4 days ago. She currently takes 1 mg t.i.d. and oxycodone was 56 tablets, 14 days worth at 4 times a day were prescribed on 02/19/19 and the patient also reports she ran out about 4 days ago. COURSE IN THE ER: She is mildly febrile to 100.4, tachycardic to the 1 teens, sinus oxygen saturation 95% on room air. Labs show mild hyponatremia, creatinine of 0.39, glucose mildly elevated at 146. CRP is elevated at 110 Troponin is flat. Imaging done includes a chest x-ray, which was normal. A CTA was ordered, which is currently pending at the time of this dictation. Urine and blood cultures were drawn and the patient was given Zosyn one time for 2/4 SIRS criteria being met with unclear source. The hospitalist team was asked to evaluate this patient for further evaluation and diagnosis. PAST MEDICAL HISTORY: Polysubstance abuse with distant IV drug use currently on prescribed benzo with escalation of dose and chronic pain off and on opiates , hepatitis C distant without treatment, anxiety, depression, GERD, tobacco use , COPD, PAST SURGICAL HISTORY: History of distant laparoscopy, hysterectomy, D and C, wisdom teeth removal. MEDICATIONS: The patient is prescribed: 1. Clonazepam 1 mg t.i.d. 2. Fluoxetine 30 mg p.o. daily. 3. Hydroxyzine 10 mg p.o. q.h.s. 4. Omeprazole 20 mg p.o. b.i.d. 5. Clonidine 0.1 mg p.o. q.h.s. 6. Oxycodone and acetaminophen 5/325 4 tabs 4 times a day p.r.n. for pain. ALLERGIES: LEVOFLOXACIN. FAMILY HISTORY: Positive in her parents for hypertension and mother with stroke. SOCIAL HISTORY: The patient is currently domiciled in a hotel secondary to recent eviction. Tobacco, she is a current 2 pack per day user. Alcohol 6 pack per day user with last drink 2 days ago. The patient denies current illicits, using non- prescribed opiates benzos or IV drug use, but does report self-escalating current prescribed doses. REVIEW OF SYSTEMS: Constitutional: Positive for fevers, chills, malaise. HEENT: Negative for vision changes, headache or sore throat. Cardiovascular: Negative for chest pain. Positive for mild palpitations. Negative for orthopnea. Respiratory: Negative for shortness of breath. Positive for chronic cough. GI: Positive for nausea, vomiting, diarrhea. Negative for abdominal pain. : Negative for dysuria, hematuria. Musculoskeletal: Positive for myalgias and arthralgias, but negative for weakness. Skin: Negative for new rashes or lesion. Neurologic: Negative for focal weakness and numbness. Psychiatric: Negative for delusion, depression, anxiety, suicidal ideation or homicidal elevation. Endocrine is negative for polyuria or polydipsia. Heme: Negative for easy bruising, bleeding or lymphadenopathy. PHYSICAL EXAMINATION GENERAL APPEARANCE: This is a mildly ill appearing woman diaphoretic in no acute distress, tremulous and tearfully. A and O x3. VITAL SIGNS: At the time of physical exam, the patient's temperature is 100.1, heart rate 121, respiratory rate 20, oxygen saturation 100% on room air, blood pressure 155/112. HEENT: She has 4 mm pupils that are reactive bilaterally. Extraocular muscles are intact. Sclerae anicteric. Mouth has a poor dentition. Dry mucous membranes.. NECK: Supple with no supraclavicular or cervical lymphadenopathy. RESPIRATORY: She has diffuse rhonchi. No crackles and no clear diminished airways, mildly wheeze. CARDIAC: She has sinus tachycardia but no murmurs, rubs or gallops. ABDOMEN: Her belly is mildly distended but soft, mildly tender to palpation at right upper quadrant. No organomegaly. Hyperactive bowel sounds. She has a mildly enlarged palpable liver edge with 10 to 12 cm liver. MUSCULOSKELETAL: Moves all 4 limbs spontaneously. EXTREMITIES: She has bilateral DP pulses. 1+ nonpitting edema, significant eczema in her lower extremities and on right lower extremity, she has an erythema, warmth and mild scabbing to right boothe. NEUROLOGIC AND PSYCH : Cranial nerves II through XII intact. She is A and O x3. She is tearful and anxious with mild self-awareness, sometimes delayed responses. SKIN: With no piloerection, mild diaphoresis. DIAGNOSTIC STUDIES/LAB DATA: White blood cell count 10.1, hemoglobin 13.2, hematocrit 39, platelet 211, absolute neutrophils 8.3. D-dimer is 306. INR is 1.06. Sodium 132, potassium 3.5, chloride 95, carbon dioxide 28, BUN 3, creatinine 0.39, glucose 146, lactic acid 1.8. CRP 110. AST 27, ALT 20, alk phos is 103. Imaging includes a chest x-ray which shows stigmata of chronic obstructive pulmonary disease, but no acute area of infiltrate. CTA of chest is ordered, which is not performed at this time and EKG shows sinus tachycardia with no evidence of ischemia. Imaging from 01/08/19 visit is reviewed. Lumbar spine radiograph, rib with chest radiographs are reviewed and showed no acute fracture from that time. ASSESSMENT AND PLAN: A 48-year-old female with past medical history of distant polysubstance abuse, currently on opiate dependence; daily alcohol use; chronic pain, off and on opiate pain medication; hepatitis C from distant IV drug use, last used 20 years ago; anxiety; depression; tobacco use; chronic obstructive pulmonary disease; and heartburn, who presents with numerous somatic complaints , tachycardia and a low-grade fever. At this time, there is no clear inciting source. Her differential includes pulmonary embolism, which is being rolled out with CTA. A viral illness, the only possible source that is clear on exam is right lower extremity erythema and warmth, consistent with very mild cellulitis, very unremarkable urine but possible UTI, nonpurulent and finally some component of concomitant opiate and benzo withdrawal given her symptoms starting with abrupt discontinuation of clonazepam in the setting of misuse and escalation of dose as well as discontinuation of oxycodone, which she was taking 4 to 5 times a day. Once again above recommended dosage. Given her clinical instability, we will place the patient on observation to determine further sources for tachycardia, treat withdrawal, and continue to monitor her systemic inflammatory response syndrome criteria. 1. Systemic inflammatory response syndrome criteria meeting 2/4 with tachycardia and low-grade fever to 100.4. Her white blood cell count and respiratory rate are normal. We will continue fluids [address] We will place the patient on IV doxycycline for possible skin soft tissue infection of right lower extremity, if culture data reveals otherwise will change course. For the options of non-infection related tachycardia and fever, we will resume the patient's clonazepam at dose reduced from 0.25% given likely component of withdrawal and history of escalation of dose. Offered buprenorphine for opiate withdrawal after discussion with outpatient PCP Kelly Huber occurred. 2. Benzodiazepine withdrawal. Again inappropriate use and escalation of dosage , the patient will be dose reduced by 25% and will need slow taper given her long history of benzodiazepine use disorder and significant withdrawal symptoms. 3. Tobacco use. We will offer the patient nicotine replacement therapy. 4. Nausea and vomiting. Again, this is unclear if this is related to her systemic inflammatory response syndrome criteria or if this is more withdrawal. We will treat symptomatically for now and order right upper quadrant ultrasound for hepatomegaly and mild tenderness to palpation of right upper quadrant in the setting of known hepatitis C. She has no clear transaminitis. We can offer dicyclomine and ondansetron for symptomatic treatment. 5. Chronic pain. The patient has poorly controlled chronic pain, which is complicated by likely opiate withdrawal. We will place the patient on standing Tylenol and Toradol IV p.r.n. for breakthrough pain. She is open to starting gabapentin, which can be started slowly and up titrated significantly as well as she was open to trialing buprenorphine up to t.i.d. for both pain craving and withdrawal. 6. Hepatitis C. She has not ever been treated and no evidence of acute hepatitis C. 7. DVT prophylaxis. The patient placed on Lovenox for high risk. 8. Code status. Full. 9. Disposition at time of admission is stable for medicine floor with telemetry. Social work consult will also be placed given the patient's homelessness. 10. FEN. The patient will be offered soft and bland diet after right upper quadrant ultrasound is completed. TIME SPENT: Sixty minutes was spent in the planning of this admission with over half of that spent directly at the bedside with the patient providing direct patient care. Plan of care was discussed with the patient and has no further questions. Understands observation and will continue to monitor symptoms closely. [id number]/[facility] #: [id number] MARILUZ
[2019-03-04] MEDS: Buprenorphine TAB* 2 MG TAB.SL SL SCH ×2 (20:20→21:54)
[2019-03-04] MEDS: Acetaminophen TAB* 325 MG PO SCH ×2 (20:20→21:25)
[2019-03-04] MEDS: clonazePAM TAB(*) 1 MG PO SCH ×2 (20:21→21:55)
[2019-03-04] MEDS: Ketorolac INJ* 30 MG/ML 1 ML VIAL IV PUSH PRN (21:23)
[2019-03-04] MEDS: DOXYcycline IV* 100 MG in NS 0.9% 250 ML* 250 ML IVPB SCH (21:27)
[2019-03-04] MEDS: Gabapentin CAP(*) 100 MG PO SCH (22:02)
[2019-03-04] MEDS: Pantoprazole TAB * 40 MG TAB PO SCH (22:03)
[2019-03-04] MEDS: cloNIDine TAB* 0.1 MG PO SCH (22:03)
[2019-03-04] MEDS: Enoxaparin(*) 40 MG/0.4 ML SYR SUBCUT SCH (22:04)
[2019-03-05] MEDS: Acetaminophen TAB* 325 MG PO SCH ×6 (01:25→22:33)
[2019-03-05] MEDS: DOXYcycline IV* 100 MG in NS 0.9% 250 ML* 250 ML IVPB SCH (06:26)
[2019-03-05 07:45] LABS: ABS Basophils 0.1 10^3/ul (0-0.2); ABS Lymphocytes 1.3 10^3/ul (1.0-4.8); ABS Monocytes 0.7 10^3/ul (0-0.8); ABS Neutrophils 6.5 10^3/ul (1.5-7.7); Eosinophil % 0.1 %; Hematocrit 37 % (35-47); Hemoglobin 12.6 g/dL (12.0-16.0); Lymphocyte % 15.4 %; Mean Corpuscular HGB Conc 34 g/dL (31-36); Mean Corpuscular Hemoglobin 29 pg (27-31); Mean Corpuscular Volume 84 fL (80-97); Mean Platelet Volume 7.1 fL (7.4-10.4); Nucleated Red Blood Cells % 0.1; Platelet Count 183 10^3/uL (150-450); Red Blood Count 4.41 10^6 /uL (3.70-4.87); Red Cell Distribution Width 15 % (10-15); White Blood Count 8.7 10^3/uL (3.5-10.8)
[2019-03-05 08:06] LABS: Calcium 8.3 mg/dL (8.6-10.3); Potassium 3.2 mmol/L (3.5-5.0)
[2019-03-05 08:12] LABS: BUN/Creatinine Ratio 9.6 (8-20); EGFR African American 151.7 (>60); EGFR Non-African American 125.3 (>60)
[2019-03-05] MEDS: Buprenorphine TAB* 2 MG TAB.SL SL SCH ×2 (09:19→22:34)
[2019-03-05] MEDS: Pantoprazole TAB * 40 MG TAB PO SCH ×2 (09:20→22:34)
[2019-03-05] MEDS: clonazePAM TAB(*) 0.5 MG PO SCH ×3 (09:20→22:31)
[2019-03-05] MEDS: Gabapentin CAP(*) 100 MG PO SCH ×3 (09:20→22:31)
[2019-03-05] MEDS: Ketorolac INJ* 30 MG/ML 1 ML VIAL IV PUSH PRN ×2 (11:19→19:27)
--- NOTE | 2019-03-05 11:36 | PN ---
Subjective Date of Service: 03/05/19 Interval History: HD # 2 on 03/05/19 48 F PSA (distant) currently on benzodiaz with escalation of dose, ETOH use d/o , chronic pain off/on rx opiates with escalation of dose (denies IVDU), Hep C, COPD, tob use, GERD presented with tachycardia and low grade fever concerning for withdrawal vs acute viral/bacterial process. Overnight no acute events, T Max 100, tachycardia resolving sig Labs: Mild hypoK today, WBC down Micro--GNR on the stain !, though no growth to date (changed back to GN coverage ) Imaging: CTA->showed NO PE, did show compression fractures T89 and old T11, also with L ? perinhepric stranding (urine appears normal, her pain is R sided, unsure if this is clinically relevant), also with hepatomegaly but no other acute dz on abdominal US This morning seen in bed, feeling slightly better, still with back pain but mildly better, no other issues. Objective Active Medications: Acetaminophen (Tylenol Tab*) 650 mg PO Q4H [facility] Last Admin: 03/05/19 09:21 Dose: 650 mg Buprenorphine HCl (Subutex Tab*) 4 mg SL BID [facility] Last Admin: 03/05/19 09:19 Dose: 4 mg Clonazepam (Klonopin Tab(*)) 0.75 mg PO TID [facility] Last Admin: 03/05/19 09:20 Dose: 0.75 mg Clonidine HCl (Catapres Tab*) 0.1 mg PO BEDTIME [facility] Last Admin: 03/04/19 22:03 Dose: 0.1 mg Dicyclomine HCl (Bentyl Cap*) 10 mg PO AC PRN PRN Reason: INDIGESTION Enoxaparin Sodium (Lovenox(*)) 40 mg SUBCUT Q24H [facility] Last Admin: 03/04/19 22:04 Dose: 40 mg Fluoxetine HCl (Prozac Cap*) 10 mg PO 1500 STORMY Fluoxetine HCl (Prozac Cap*) 20 mg PO 1500 STORMY Gabapentin (Neurontin Cap(*)) 200 mg PO TID [facility] Last Admin: 03/05/19 09:20 Dose: 200 mg Hydroxyzine HCl (Atarax Tab*) 10 mg PO QID PRN PRN Reason: ANXIETY Doxycycline Hyclate 100 mg/ (Sodium Chloride) 250 mls @ 250 mls/hr IVPB Q12H [facility] Last Admin: 03/05/19 06:26 Dose: 250 mls/hr Ketorolac Tromethamine (Toradol Inj*) 30 mg IV PUSH Q6H PRN PRN Reason: PAIN Last Admin: 03/05/19 11:19 Dose: 30 mg Miscellaneous (Ativan Pyxis Long) 1 ea N/A .ATIVAN IV LONG PRN PRN Reason: PYXIS LONG Ondansetron HCl (Zofran Inj*) 4 mg IV Q6H PRN PRN Reason: NAUSEA Pantoprazole Sodium (Protonix Tab*) 40 mg PO BID [facility] Last Admin: 03/05/19 09:20 Dose: 40 mg Potassium Chloride (Potassium Chloride Liquid) 20 meq PO BID [facility] Vital Signs - 8 hr 03/05/19 03/05/19 03/05/19 07:15 07:50 08:00 Temperature 97.4 F Pulse Rate 74 Respiratory 16 16 18 Rate Blood Pressure 117/78 (mmHg) O2 Sat by Pulse 92 92 Oximetry 03/05/19 03/05/19 03/05/19 09:19 09:20 11:03 Temperature 97.3 F Pulse Rate 99 Respiratory 18 18 20 Rate Blood Pressure 122/87 (mmHg) O2 Sat by Pulse 94 Oximetry Oxygen Devices in Use Now: None Appearance: Discheleved woman in NAD Eyes: No Scleral Icterus, PERRLA Ears/Nose/Mouth/Throat: NL Teeth, Lips, Gums Neck: NL Appearance and Movements; NL JVP, Trachea Midline Respiratory: Symmetrical Chest Expansion and Respiratory Effort, Clear to Auscultation Cardiovascular: NL Sounds; No Murmurs; No JVD, RRR Abdominal: NL Sounds; No Tenderness; No Distention, No Hepatosplenomegaly Lymphatic: No Cervical Adenopathy Extremities: No Edema Skin: - - RLE much improved in terms of erythema on anterior boothe Neurological: Alert and Oriented x 3 Result Diagrams: 03/05/19 07:28 03/05/19 07:29 Additional Lab and Data: Lab Results 03/04/19 03/04/19 03/04/19 Range/Units 10:50 10:50 10:50 WBC 10.1 (3.5-10.8) 10^3/uL RBC 4.71 (3.70-4.87) 10^6 /uL Hgb 13.2 (12.0-16.0) g/dL Hct 39 (35-47) % MCV 83 (80-97) fL MCH 28 (27-31) pg MCHC 34 (31-36) g/dL RDW 14 (10-15) % Plt Count 211 (150-450) 10^3/uL MPV 6.9 L (7.4-10.4) fL Neut % (Auto) 82.6 % Lymph % (Auto) 6.5 % Cottle % (Auto) 9.9 % Eos % (Auto) 0.9 % Baso % (Auto) 0.1 % Absolute Neuts (auto) 8.3 H (1.5-7.7) 10^3/ul Absolute Lymphs (auto) 0.7 L (1.0-4.8) 10^3/ul Absolute Monos (auto) 1.0 H (0-0.8) 10^3/ul Absolute Eos (auto) 0.1 (0-0.6) 10^3/ul Absolute Basos (auto) 0.0 (0-0.2) 10^3/ul Absolute Nucleated RBC 0.0 10^3/ul Nucleated RBC % 0.1 INR (Anticoag Therapy) 1.06 (0.82-1.09) APTT 28.7 (26.0-38.0) seconds D-Dimer, Quantitative Pending Sodium 132 L (135-145) mmol/L Potassium 3.5 (3.5-5.0) mmol/L Chloride 95 L (101-111) mmol/L Carbon Dioxide 28 (22-32) mmol/L Anion Gap 9 (2-11) mmol/L BUN 3 L (6-24) mg/dL Creatinine 0.39 L (0.51-0.95) mg/dL Est GFR ( Amer) 211.4 (>60) Est GFR (Non-Af Amer) 174.7 (>60) BUN/Creatinine Ratio 7.7 L (8-20) Glucose 146 H (70-100) mg/dL Lactic Acid (0.5-2.0) mmol/L Calcium 8.6 (8.6-10.3) mg/dL Total Bilirubin 0.70 (0.2-1.0) mg/dL AST 27 (13-39) U/L ALT 20 (7-52) U/L Alkaline Phosphatase 103 (34-104) U/L Troponin I 0.00 (<0.04) ng/mL C-Reactive Protein 110.83 H (<8.01) mg/L Total Protein 7.3 (6.4-8.9) g/dL Albumin 3.7 (3.2-5.2) g/dL Globulin 3.6 (2-4) g/dL Albumin/Globulin Ratio 1.0 (1-3) 03/04/19 Range/Units 10:50 WBC (3.5-10.8) 10^3/uL RBC (3.70-4.87) 10^6 /uL Hgb (12.0-16.0) g/dL Hct (35-47) % MCV (80-97) fL MCH (27-31) pg MCHC (31-36) g/dL RDW (10-15) % Plt Count (150-450) 10^3/uL MPV (7.4-10.4) fL Neut % (Auto) % Lymph % (Auto) % Cottle % (Auto) % Eos % (Auto) % Baso % (Auto) % Absolute Neuts (auto) (1.5-7.7) 10^3/ul Absolute Lymphs (auto) (1.0-4.8) 10^3/ul Absolute Monos (auto) (0-0.8) 10^3/ul Absolute Eos (auto) (0-0.6) 10^3/ul Absolute Basos (auto) (0-0.2) 10^3/ul Absolute Nucleated RBC 10^3/ul Nucleated RBC % INR (Anticoag Therapy) (0.82-1.09) APTT (26.0-38.0) seconds D-Dimer, Quantitative Sodium (135-145) mmol/L Potassium (3.5-5.0) mmol/L Chloride (101-111) mmol/L Carbon Dioxide (22-32) mmol/L Anion Gap (2-11) mmol/L BUN (6-24) mg/dL Creatinine (0.51-0.95) mg/dL Est GFR ( Amer) (>60) Est GFR (Non-Af Amer) (>60) BUN/Creatinine Ratio (8-20) Glucose (70-100) mg/dL Lactic Acid 1.8 (0.5-2.0) mmol/L Calcium (8.6-10.3) mg/dL Total Bilirubin (0.2-1.0) mg/dL AST (13-39) U/L ALT (7-52) U/L Alkaline Phosphatase (34-104) U/L Troponin I (<0.04) ng/mL C-Reactive Protein (<8.01) mg/L Total Protein (6.4-8.9) g/dL Albumin (3.2-5.2) g/dL Globulin (2-4) g/dL Albumin/Globulin Ratio (1-3) Microbiology and Other Data: Microbiology 03/04/19 10:50 Blood Culture - Preliminary Blood Venous No Growth Day 1 03/04/19 10:50 Aerobic Blood Culture - Preliminary Blood Venous Anaerobic Blood Culture - Preliminary No Growth Day 1 Assess/Plan/Problems-Billing Assessment: 48 F PSA (distant) currently on benzo with escalation of dose, ETOH use d/o, chronic pain off/on rx opiates with escalation of dose (denies IVDU), Hep C, COPD, tob use, GERD presented with tachycardia and low grade fever concerning for withdrawal vs acute viral/bacterial process. Found to have ? GNR on stain in one bottle, possible urinary source with L perinephric stranding, also has L LE abrasion, possible cellulitis. - Patient Problems (1) Systemic inflammatory response syndrome (SIRS) due to gram-negative infection Current Visit: Yes Status: Acute Code(s): [id number] - SNOMED Code(s): 814916878 Comment: - Presumed GNR from stain though cx neg, possible urinary source - Repeat renal US for possible perinpehric stranding on R? - Continue Zosyn, dc Doxy, await speciation Day 2/__ on 03/05 (2) Benzodiazepine withdrawal Current Visit: Yes Status: Acute Code(s): F13.239 - SEDATV/HYP/ANXIOLYTC DEPENDENCE W WITHDRAWAL, UNSP SNOMED Code(s): 703681721 Comment: - Restarted Clonazepam and 25 % dose reduction - Dicussed withoutpt PCP (Kelly) taper plan (3) Tobacco use Current Visit: Yes Status: Acute Code(s): Z72.0 - TOBACCO USE SNOMED Code( s): 306103115 Comment: - Offer NRT (4) Opioid withdrawal Current Visit: Yes Status: Acute Code(s): F11.23 - OPIOID DEPENDENCE WITH WITHDRAWAL SNOMED Code(s): 62125719 Comment: - Started Suboxone, distnat hx of IVDU abuse, currently abusing opiate pain rx - Adjust as needed, provider as outpt willing to continue to rx (5) Back pain Current Visit: Yes Status: Acute Code(s): M54.9 - DORSALGIA, UNSPECIFIED SNOMED Code(s): 198466545 Comment: - 2/2 to compression fractures, unlikely intervention, will consult to Neurosurg to see if brace candidate, will order MRI thoracic spine. (6) Hepatitis C, chronic Current Visit: Yes Status: Acute Comment: - No hx of tx, last IVDU > 20 yr ago per pt (7) Depression Current Visit: Yes Status: Acute Code(s): F32.9 - MAJOR DEPRESSIVE DISORDER , SINGLE EPISODE, UNSPECIFIED SNOMED Code(s): 65170865 Comment: - Fluloxteine 30mg, Hydroxyzine PRN - Clonazepam as per Benzo (8) DVT prophylaxis Current Visit: Yes Status: Acute Code(s): Z29.9 - ENCOUNTER FOR PROPHYLACTIC MEASURES, UNSPECIFIED SNOMED Code(s): 927322172 (9) Full code status Current Visit: Yes Status: Acute Code(s): Z78.9 - OTHER SPECIFIED HEALTH STATUS SNOMED Code(s): 045819235
[2019-03-05] MEDS ORDERED: Nicotine Lozenge* mini 4 MG LOZNG.MINI MT PRN (12:12)
[2019-03-05] MEDS ORDERED: Nicotine* 4MG (FRUIT FLAVOR) GUM PO PRN (12:12)
[2019-03-05] MEDS: NS 0.9% 1000 ML** 1,000 ML IV SCH (12:55)
[2019-03-05] MEDS: Potassium Chloride* LIQUID 20 MEQ/15 ML UDC PO SCH ×2 (12:55→22:30)
[2019-03-05] MEDS: Nicotine PATCH 21 MG/24 HR* PATCH TRANSDERM SCH (12:55)
[2019-03-05] MEDS: CMC: Calcitonin NASAL(NF) 200 UNITS/SPRAY NASAL.SPR ALT NARE SCH (13:05)
[2019-03-05] MEDS ORDERED: Piperacillin/Tazobac ADVAN(*) 3.375 GM in NS 0.9% 100 ML* 100 ML IVPB SCH (15:00)
[2019-03-05] MEDS: FLUoxetine CAP* 10 MG PO SCH (15:53)
[2019-03-05] MEDS: FLUoxetine CAP* 20 MG PO SCH (15:53)
[2019-03-05] MEDS: Enoxaparin(*) 40 MG/0.4 ML SYR SUBCUT SCH (19:16)
[2019-03-05] MEDS ORDERED: Albuterol/Ipratropium NEB.SOL* Albuterol 2.5 MG/Ipratropium 0.5 MG 3 ML INH ONE (20:05)
[2019-03-05] MEDS: cloNIDine TAB* 0.1 MG PO SCH (22:30)
[2019-03-05] MEDS: cefTRIAXone(*) 1 GM in NS 0.9% 50 ML* 50 ML IVPB SCH (22:49)
[2019-03-05] MEDS: Nicotine Patch Removal NOTE FOLLOW UP SCH (23:09)
[2019-03-06] MEDS: NS 0.9% 1000 ML** 1,000 ML IV SCH ×2 (00:47→08:45)
[2019-03-06] MEDS: Acetaminophen TAB* 325 MG PO SCH ×6 (04:32→21:47)
[2019-03-06] MEDS: Ketorolac INJ* 30 MG/ML 1 ML VIAL IV PUSH PRN ×3 (04:40→18:27)
--- NOTE | 2019-03-06 07:54 | PN ---
Subjective Date of Service: 03/06/19 Interval History: HD # 3 on 03/06/19 48 F PSA (distant) currently on benzo with escalation of dose, ETOH use d/o, chronic pain off/on rx opiates with escalation of dose (denies IVDU), Hep C, COPD, tob use, GERD presented with tachycardia and low grade fever concerning for withdrawal vs acute viral/bacterial process, found to have Ecoli in 1 aerobic bottle . Overnight no acute events, VSS, HR improved Labs: Micro--Ecoli in one bottle, arechiga Nuvia Imaging: MRI:Subacute compression fractures, no retropulsion This morning seen in bed, she is feeling better, a few complaints that difficult to sleep here but she is otherwise encouraged that she is less shaky. willing to work with PT, generally poor motivation but eating and drinking and voiding freely for the first day since arriving. NO further stomach complaints c /o pain at R rib, and mid back we discuss likley all sequela of compression frxr , will need to start PT and calcitonin. Tolerating suboxone well, no sx from dose reduction of Clonazepam and we discuss dose reducing further. Will further coordinate with outpt provider Objective Active Medications: Acetaminophen (Tylenol Tab*) 650 mg PO Q4H [facility] Last Admin: 03/06/19 05:10 Dose: Not Given Buprenorphine HCl (Subutex Tab*) 4 mg SL BID [facility] Last Admin: 03/05/19 22:34 Dose: 4 mg Calcitonin Bailey (Fortical(Nr)) 200 units ALT NARE DAILY [facility]; Protocol Last Admin: 03/05/19 13:05 Dose: 200 units Clonazepam (Klonopin Tab(*)) 0.75 mg PO TID [facility] Last Admin: 03/05/19 22:31 Dose: 0.75 mg Clonidine HCl (Catapres Tab*) 0.1 mg PO BEDTIME [facility] Last Admin: 03/05/19 22:30 Dose: 0.1 mg Dicyclomine HCl (Bentyl Cap*) 10 mg PO AC PRN PRN Reason: INDIGESTION Enoxaparin Sodium (Lovenox(*)) 40 mg SUBCUT Q24H [facility] Last Admin: 03/05/19 19:16 Dose: 40 mg Fluoxetine HCl (Prozac Cap*) 10 mg PO 1500 [facility] Last Admin: 03/05/19 15:53 Dose: 10 mg Fluoxetine HCl (Prozac Cap*) 20 mg PO 1500 [facility] Last Admin: 03/05/19 15:53 Dose: 20 mg Gabapentin (Neurontin Cap(*)) 200 mg PO TID [facility] Last Admin: 03/05/19 22:31 Dose: 200 mg Hydroxyzine HCl (Atarax Tab*) 10 mg PO QID PRN PRN Reason: ANXIETY Sodium Chloride (Ns 0.9% 1000 Ml) 1,000 mls @ 125 mls/hr IV PER RATE [facility] Stop: 03/07/19 19:59 Last Admin: 03/06/19 00:47 Dose: 125 mls/hr Ceftriaxone Sodium 1 gm/ (Sodium Chloride) 50 mls @ 200 mls/hr IVPB Q24H [facility] Last Admin: 03/05/19 22:49 Dose: 200 mls/hr Ketorolac Tromethamine (Toradol Inj*) 30 mg IV PUSH Q6H PRN PRN Reason: PAIN Last Admin: 03/06/19 04:40 Dose: 30 mg Miscellaneous (Ativan Pyxis Long) 1 ea N/A .ATIVAN IV LONG PRN PRN Reason: PYXIS LONG Nicotine (Nicotine Patch 21 Mg/24 Hr*) 1 patch TRANSDERM DAILY@0800 [facility] Last Admin: 03/05/19 12:55 Dose: 1 patch Nicotine Polacrilex (Nicotine Gum*) 4 mg PO Q2H PRN PRN Reason: CRAVING Nicotine Polacrilex (Nicotine Lozenge Mini) 4 mg MT Q2H PRN PRN Reason: CRAVING Ondansetron HCl (Zofran Inj*) 4 mg IV Q6H PRN PRN Reason: NAUSEA Pantoprazole Sodium (Protonix Tab*) 40 mg PO BID [facility] Last Admin: 03/05/19 22:34 Dose: 40 mg Pharmacy Profile Note (Nicotine Patch Removal Note*) 1 note FOLLOW UP 2100 [facility] Last Admin: 03/05/19 23:09 Dose: 1 note Potassium Chloride (Potassium Chloride Liquid) 20 meq PO BID [facility] Last Admin: 03/05/19 22:30 Dose: 20 meq Vital Signs - 8 hr 03/06/19 03/06/19 03/06/19 02:13 02:14 03:00 Temperature Pulse Rate Respiratory 14 14 14 Rate Blood Pressure (mmHg) O2 Sat by Pulse Oximetry 03/06/19 03:15 Temperature 98.0 F Pulse Rate 75 Respiratory 16 Rate Blood Pressure 107/64 (mmHg) O2 Sat by Pulse 100 Oximetry Oxygen Devices in Use Now: None Appearance: Disheveled woman in NAD, much more engaged and comfortable appearing today Ears/Nose/Mouth/Throat: - - Poor dentiton MMM Respiratory: Symmetrical Chest Expansion and Respiratory Effort, - - Diffuse rhonchi Cardiovascular: NL Sounds; No Murmurs; No JVD, RRR Abdominal: NL Sounds; No Tenderness; No Distention, No Hepatosplenomegaly Lymphatic: No Cervical Adenopathy Extremities: No Edema Skin: No Rash or Ulcers Neurological: Alert and Oriented x 3, NL Sensation, NL Muscle Strength and Tone , - - no TTP to spine, mild to R rib area, 5/5 motor in UE and LE Result Diagrams: 03/05/19 07:28 03/06/19 07:07 Additional Lab and Data: Lab Results Microbiology and Other Data: Microbiology 03/04/19 10:50 Blood Culture - Preliminary Blood Venous No Growth Day 1 03/04/19 10:50 Aerobic Blood Culture - Preliminary Blood Venous Anaerobic Blood Culture - Preliminary No Growth Day 1 Assess/Plan/Problems-Billing Assessment: 48 F PSA (distant) currently on benzo with escalation of dose, ETOH use d/o, chronic pain off/on rx opiates with escalation of dose (denies IVDU), Hep C, COPD, tob use, GERD presented with tachycardia and low grade fever concerning for withdrawal vs acute viral/bacterial process. Found to have ecoli in one bottle, possible urinary source with L perinephric stranding, also has L LE abrasion, possible cellulitis. Also incidental compression fractures noted, subacute - Patient Problems (1) Systemic inflammatory response syndrome (SIRS) due to gram-negative infection Current Visit: Yes Status: Acute Code(s): YXQ1091 - SNOMED Code(s): 733936504 Comment: - Now resolved - Presumed Ecoli causing sx as one bottle with bactermeia, possible urinary source, she also had skin findings on RLE on admission improving on current tx - Perinephric stranding seen on original imaging, though urine without E Coli - Continue CTX alone Day 414 on 03/06, can be d/c on Keflex which cover both skin and urine. (2) Benzodiazepine withdrawal Current Visit: Yes Status: Acute Code(s): F13.239 - SEDATV/HYP/ANXIOLYTC DEPENDENCE W WITHDRAWAL, UNSP SNOMED Code(s): 600637207 Comment: - Restarted Clonazepam and 25 % dose reduction, will dose reduce further and send out on 0.5 TID (rx 1mg TID and was using up to QID or even 6x a day) - Dicussed withoutpt PCP (Kelly) taper plan (3) Tobacco use Current Visit: Yes Status: Acute Code(s): Z72.0 - TOBACCO USE SNOMED Code( s): 143096596 Comment: - Offer NRT (4) Opioid withdrawal Current Visit: Yes Status: Acute Code(s): F11.23 - OPIOID DEPENDENCE WITH WITHDRAWAL SNOMED Code(s): 93821115 Comment: - Started Suboxone, distnat hx of IVDU abuse, currently abusing opiate pain rx - Adjust as needed, provider as outpt willing to continue to rx, pt toelrating well (5) Back pain Current Visit: Yes Status: Acute Code(s): M54.9 - DORSALGIA, UNSPECIFIED SNOMED Code(s): 662189996 Comment: - 2/2 to compression fractures, unlikely intervention, will consult to Neurosurg to see if brace candidate, will order MRI thoracic spine. - Start PT (6) Hepatitis C, chronic Current Visit: Yes Status: Acute Comment: - No hx of tx, last IVDU > 20 yr ago per pt (7) Depression Current Visit: Yes Status: Acute Code(s): F32.9 - MAJOR DEPRESSIVE DISORDER , SINGLE EPISODE, UNSPECIFIED SNOMED Code(s): 68673105 Comment: - Fluloxteine 30mg, Hydroxyzine PRN - Clonazepam as per Benzo plan (8) DVT prophylaxis Current Visit: Yes Status: Acute Code(s): Z29.9 - ENCOUNTER FOR PROPHYLACTIC MEASURES, UNSPECIFIED SNOMED Code(s): 077465627 (9) Full code status Current Visit: Yes Status: Acute Code(s): Z78.9 - OTHER SPECIFIED HEALTH STATUS SNOMED Code(s): 229546788 Status and Disposition: Pending PT, improving today -Called to Colby Kraft regarding benzo, call to Kelly to discuss continuation of Suboxone 4 BID for pain
[2019-03-06 07:59] LABS: Albumin 3.2 g/dL (3.2-5.2); BUN/Creatinine Ratio 11.5 (8-20); EGFR African American 126.1 (>60); EGFR Non-African American 104.2 (>60); Globulin 3.3 g/dL (2-4); Potassium 3.5 mmol/L (3.5-5.0); Total Bilirubin 0.4 mg/dL (0.2-1.0); Total Protein 6.5 g/dL (6.4-8.9)
[2019-03-06] MEDS: CMC: Calcitonin NASAL(NF) 200 UNITS/SPRAY NASAL.SPR ALT NARE SCH (08:46)
[2019-03-06] MEDS: Nicotine PATCH 21 MG/24 HR* PATCH TRANSDERM SCH ×2 (08:48→12:31)
[2019-03-06] MEDS: Potassium Chloride* LIQUID 20 MEQ/15 ML UDC PO SCH ×2 (08:50→21:45)
[2019-03-06] MEDS: clonazePAM TAB(*) 0.5 MG PO SCH ×3 (08:51→21:45)
[2019-03-06] MEDS: Buprenorphine TAB* 2 MG TAB.SL SL SCH ×2 (08:53→22:21)
[2019-03-06] MEDS: Gabapentin CAP(*) 100 MG PO SCH ×3 (08:54→21:46)
[2019-03-06] MEDS: Pantoprazole TAB * 40 MG TAB PO SCH ×2 (08:55→21:48)
[2019-03-06] MEDS ORDERED: Lorazepam PYXIS KEY ONE (09:44)
[2019-03-06] MEDS: FLUoxetine CAP* 20 MG PO SCH (14:07)
[2019-03-06] MEDS: FLUoxetine CAP* 10 MG PO SCH (14:10)
[2019-03-06] MEDS: Enoxaparin(*) 40 MG/0.4 ML SYR SUBCUT SCH (18:20)
--- NOTE | 2019-03-06 19:37 | PN ---
Hospitalist Progress Note Date of Service: 03/06/19 Off Service Note: 48F homeless presented w/ tachycardia with low grade fevers, also out of her clonazepam and oxycontin which she had been misusing, distant hx of IVDU but none current. Clinically appeared to have low grade infection 2/4 SIRS as well as opiate and benzo withdrawal. She had a subacute hx of fall several weeks prior and chronic back pain and was found to have compression fractures, stable Dispo: Ancipate discharge in the next 24 to 48 hours depending on pain control Meds on discharge: --Spoke with Colby Bland her current benzo provider, she would like her d /c on 0.5mg TID (1/2 of her original dose) with enough to cover until MondayMarch 11 at 11:40 AM when she will see patient --Kelly Odalisadam will be rxing patients Suboxone and she can follow up with reach for this. NO FURTHER OXY --Needs to be on calcitonin nasal spray for compression fractures, Angus was called, but he hasn't left recs yet. --To go on Keflex for Ecoli in one bottle for a total of 14 days --Home care orders for PT and nursing were already arranged. When patient is able from a pain standpoint to navigate outpatient appts she can be discharged, possibly 03/07/2019.
[2019-03-06] MEDS: Nicotine Patch Removal NOTE FOLLOW UP SCH (21:48)
[2019-03-06] MEDS: cloNIDine TAB* 0.1 MG PO SCH (21:51)
--- NOTE | 2019-03-06 21:53 | CONS ---
CONSULTATION REPORT: DATE OF CONSULT: 03/06/19 HISTORY OF PRESENT ILLNESS: The patient is a very pleasant 48-year-old female with history of anxiety, polysubstance abuse, hepatitis C, who was admitted to the hospital because of increased temperature and possible UTI. I am requested to see the patient by Dr. Man because of CT scan and MRI findings consistent with subacute anterior and superior end-plate fractures of T8 and T9. The patient reports that she had a fall approximately 1 month ago over a flight of stairs. She did not loose consciousness nor had loss of memory. At that time, she had some mild complaints of back pain since then. She denies any neck pain. She denies any weakness, numbness, or tingling of extremities. She was able to ambulate at her baseline. She denies any urinary or GI incontinence. The patient is single. She is unemployed. She reports that she was evicted from her house and tried to stay at her mother's house, but eventually she was taken to skilled nursing and then to hotel. PAST MEDICAL HISTORY: Polysubstance abuse, distant IV drug use, chronic pain, hepatitis C, anxiety, depression, GERD, tobacco use, and COPD. PAST SURGICAL HISTORY: Laparoscopy, hysterectomy, D and C, wisdom teeth removal. MEDICATIONS: The patient was on: 1. Clonazepam. 2. Fluoxetine. 3. Hydroxyzine. 4. Omeprazole. 5. Clonidine. 6. Oxycodone. 7. Acetaminophen ALLERGIES: LEVOFLOXACIN. FAMILY HISTORY: Hypertension and stroke. SOCIAL HISTORY: Tobacco: Positive. Alcohol: Positive, 6 packs per day. Recreational drug use: Negative. The patient reports that she is self- escalating current prescribed doses of benzos. PHYSICAL EXAMINATION: The patient is not in acute distress. She is awake, alert, and oriented x3. Her pupils are equal and reactive. Cranial nerves II through XII are grossly intact. Motor 4 to 5/5. Sensory is grossly intact to light touch. Deep tendon reflexes +1 bilaterally. No clonus, no Babinski's. Urvashi's negative. Straight leg raise test negative in the sitting position. The patient has no pain to palpation of the cervical, thoracic, or lumbar spine. She has free range of motion in the cervical spine. DIAGNOSTIC STUDIES/LAB DATA: The patient had a CTA of the chest that revealed superior and anterior end-plate fractures of T8 and T9 with chronic appearance of T11 compression fracture. The patient had an MRI of the thoracic spine that confirmed the presence of acute superior end-plate fractures of T8 and T9. There is no evidence of PLC injury. There is no canal compromise. There is no compression of the spinal cord. ASSESSMENT: The patient is a very pleasant 48-year-old female with past history of polysubstance abuse, hepatitis C, daily alcohol abuse, and chronic pain, who was admitted for urinary tract infection and was diagnosed with subacute T8 and T9 fractures. PLAN: The patient at this point is doing quite well. She has been treated for her sepsis by the hospitalist team. From her thoracic spinal fracture standpoint, we will recommend a TLSO brace and upright standing x-rays. In the meantime, we would proceed with a CT scan of the cervical spine and lumbar spine to exclude the remote possibility of other spine fractures, although clinically there is no significant suspicion for that. Thank you for allowing us to participate in the care of this patient. Please do not hesitate to contact our office in case you have any further questions or concerns regarding the care of this patient. [id number]/[facility] #: [id number] MARILUZ
[2019-03-06] MEDS: cefTRIAXone(*) 1 GM in NS 0.9% 50 ML* 50 ML IVPB SCH (22:23)
[2019-03-07] MEDS: Acetaminophen TAB* 325 MG PO SCH ×6 (01:30→21:50)
[2019-03-07] MEDS: Ketorolac INJ* 30 MG/ML 1 ML VIAL IV PUSH PRN ×2 (04:18→18:13)
[2019-03-07 06:03] LABS: ABS Basophils 0.1 10^3/ul (0-0.2); ABS Eosinophils 0.1 10^3/ul (0-0.6); ABS Lymphocytes 1.2 10^3/ul (1.0-4.8); ABS Monocytes 0.7 10^3/ul (0-0.8); ABS Neutrophils 2.9 10^3/ul (1.5-7.7); Eosinophil % 1.5 %; Hematocrit 36 % (35-47); Hemoglobin 11.8 g/dL (12.0-16.0); Lymphocyte % 24.1 %; Mean Corpuscular HGB Conc 33 g/dL (31-36); Mean Corpuscular Hemoglobin 28 pg (27-31); Mean Corpuscular Volume 85 fL (80-97); Platelet Count 225 10^3/uL (150-450); Red Blood Count 4.26 10^6 /uL (3.70-4.87); Red Cell Distribution Width 15 % (10-15); White Blood Count 4.9 10^3/uL (3.5-10.8)
[2019-03-07 06:19] LABS: BUN/Creatinine Ratio 8.2 (8-20); Calcium 8.4 mg/dL (8.6-10.3); EGFR African American 162.4 (>60); EGFR Non-African American 134.2 (>60); Potassium 3.5 mmol/L (3.5-5.0)
[2019-03-07] MEDS: Nicotine PATCH 21 MG/24 HR* PATCH TRANSDERM SCH (09:47)
[2019-03-07] MEDS: Potassium Chloride* LIQUID 20 MEQ/15 ML UDC PO SCH ×2 (09:50→21:51)
[2019-03-07] MEDS: Buprenorphine TAB* 2 MG TAB.SL SL SCH ×2 (09:51→21:50)
[2019-03-07] MEDS: clonazePAM TAB(*) 0.5 MG PO SCH ×3 (09:51→21:50)
[2019-03-07] MEDS: Gabapentin CAP(*) 100 MG PO SCH ×3 (09:51→21:51)
[2019-03-07] MEDS: CMC: Calcitonin NASAL(NF) 200 UNITS/SPRAY NASAL.SPR ALT NARE SCH (09:52)
[2019-03-07] MEDS: Pantoprazole TAB * 40 MG TAB PO SCH ×2 (09:52→21:51)
--- NOTE | 2019-03-07 13:31 | PN ---
Progress Note - Progress Note Date of Service: 03/07/19 Note: Time spent on discharge including exam of pt, discussion with pt, nurse Clint CONTEH, review of EMR and preparation of discharge documents 55 minutes.
--- NOTE | 2019-03-07 13:33 | PN ---
"Progress Note - Progress Note Date of Service: 03/07/19 Note: This report was requested by: Arias Dean | Reference #: [id number] Others' Prescriptions Patient Name: Emperatriz Torres Date: 1970 Address: [place] [address] Sex: Female Rx Written Rx Dispensed Drug Quantity Days Supply Prescriber Name 02/19/2019 02/19/2019 oxycodone-acetaminophen 5-325 mg tablet 56 14 [facility] 02/04/2019 02/05/2019 [facility]2019 oxycodone-acetaminophen 5-325 mg tablet 56 14 [facility] 01/25/2019 01/25/2019 clonazepam 1 mg tablet 33 11 Colby Bland 01/15/2019 01/15/2019 oxycodone-acetaminophen 5-325 mg tablet 28 7 [facility] 12/24/2018 12/25/2018 clonazepam 1 mg tablet 66 22 [facility] 11/09/2018 11/10/2018 clonazepam 1 mg tablet 84 28 [facility] 10/15/2018 10/15/2018 clonazepam 1 mg tablet 42 14 [facility] 09/03/2018 09/06/2018 clonazepam 1 mg tablet 84 28 Colby Bland 08/08/2018 08/08/2018 clonazepam 1 mg tablet 84 28 Colby Bland 07/02/2018 07/04/2018 lorazepam 1 mg tablet 3 3 Colby Bland 06/28/2018 06/29/2018 clonazepam 1 mg tablet 84 28 [facility] 06/07/2018 06/08/2018 guaifenesin-codeine syrup 280ml 7 [facility] 05/10/2018 05/10/2018 guaifenesin-codeine syrup 237ml 6 Yoli Bustos B, MD 05/10/2018 05/10/2018 clonazepam 1 mg tablet 84 28 Colby Bland [employer] ADMIN[employer]RATION [employer]NA[employer] 04/12/2018 04/14/2018 clonazepam 1 mg tablet 84 28 Colby Bland CONTRACT ADMINISTRATION MANAGER 03/27/2018 03/28/2018 clonazepam 1 mg tablet 30 15 Sonia Bailey"
[2019-03-07] MEDS: FLUoxetine CAP* 20 MG PO SCH (15:54)
[2019-03-07] MEDS: FLUoxetine CAP* 10 MG PO SCH (15:54)
[2019-03-07] MEDS: Enoxaparin(*) 40 MG/0.4 ML SYR SUBCUT SCH (18:13)
--- NOTE | 2019-03-07 18:16 | PN ---
Progress Note - Progress Note Date of Service: 03/07/19 Note: Reviewed patient CT of cervical and lumbar spine, no acute injuries seen. Patient has fractures of T8, T9, we recommend TLSO brace, which should be worn when upright. Once patient is fitted for brace,she should have standing AP lateral views of the thoracic spine in Brace.
--- NOTE | 2019-03-07 18:31 | DS ---
DISCHARGE SUMMARY: DATE OF ADMISSION: 03/05/19 DATE OF DISCHARGE: 03/08/19 This is being dictated in advance. HISTORY OF PRESENT ILLNESS: This 48-year-old woman presented with fever and body aches. The patient said she fell down the stairs a month ago and has chronic pain. She has been a chronic polysubstance abuser. She is an alcohol abuser. She is off and on opioids and benzodiazepines. In the emergency room, her temperature was 100.4. She was somewhat tachycardic. The patient got a dose of piperacillin/tazobactam in the emergency room. She was given intravenous fluids and intravenous doxycycline. She had her benzodiazepine dose reduced. I think she has had a period of not having any at all and may have been in some amount of withdrawal at the time of admission. The morning of discharge, he will need to touch base with a social media executive to make sure her residence situation is settled. I think she had been referred to the senior living we set her up in the [facility] and I see no reason why she should not be able to return to the same circumstances. I met with her ex- boyfriend who said he could come on Monday at 3:30 p.m. to bring her to the hotel. I transmitted the prescription for clonazepam and Kelly Huber NP, transmitted a prescription for Suboxone to the [facility] at [facility] on [address]. FINAL DIAGNOSES: 1. Polysubstance abuse. 2. Subacute compression fractures of T8 and T9. 3. E. coli bacteremia, possibly urinary source although urine culture is negative. DISCHARGE MEDICATIONS: 1. Buprenorphine 4 mg b.i.d. 2. Clonazepam 0.5 mg t.i.d. for 4 days. 3. Nicotine gum 4 mg every 2 hours p.r.n. 4. Cephalexin 500 mg t.i.d. for 11 days. 5. Clonidine 0.1 mg h.s. 6. Fluoxetine 20 mg plus 10 mg daily at 3 p.m. 7. Omeprazole 20 mg b.i.d. 8. Hydroxyzine 10 mg b.i.d. DISPOSITION ON DISCHARGE: Discharged home. CONDITION ON DISCHARGE: Stable. FOLLOWUP: Dr. Yoli Bustos. [id number]/[facility] #: [id number] [facility]
[2019-03-07] MEDS: Nicotine Patch Removal NOTE FOLLOW UP SCH (21:52)
[2019-03-07] MEDS: cloNIDine TAB* 0.1 MG PO SCH (22:01)
[2019-03-07] MEDS: cefTRIAXone(*) 1 GM in NS 0.9% 50 ML* 50 ML IVPB SCH (22:10)
[2019-03-08] MEDS: Acetaminophen TAB* 325 MG PO SCH ×4 (02:00→12:57)
[2019-03-08 03:23] VITALS: BP 127/85
[2019-03-08] MEDS: Potassium Chloride* LIQUID 20 MEQ/15 ML UDC PO SCH (07:41)
[2019-03-08] MEDS: clonazePAM TAB(*) 0.5 MG PO SCH ×2 (07:42→14:45)
[2019-03-08] MEDS: Buprenorphine TAB* 2 MG TAB.SL SL SCH (07:42)
[2019-03-08] MEDS: Gabapentin CAP(*) 100 MG PO SCH ×2 (07:43→14:45)
[2019-03-08] MEDS: Nicotine PATCH 21 MG/24 HR* PATCH TRANSDERM SCH (07:43)
[2019-03-08] MEDS: Pantoprazole TAB * 40 MG TAB PO SCH (07:44)
[2019-03-08] MEDS: CMC: Calcitonin NASAL(NF) 200 UNITS/SPRAY NASAL.SPR ALT NARE SCH (10:02)
[2019-03-08] MEDS: FLUoxetine CAP* 10 MG PO SCH (14:45)
[2019-03-08] MEDS: FLUoxetine CAP* 20 MG PO SCH (14:45)
--- NOTE | 2019-03-08 18:44 | DS ---
Addendum to original Discharge Summary by Arias Dean. Addendum to History of Present Illness: On morning of discharge a TLSO brace ordered and eventually obtained from [facility] for her subacute anterior and superior endplate fractures of T8,T9 as per Neurosurgery request. Standing Thoracic Xray obtained (showed unchanged compression fracture of the T8 and T9 vertebral bodies). Advised to wear TLSO when not in bed and to follow-up with Dr. Ruth.
== END 2019-03-08 17:00 | disposition home health service (06) | DRG 720 ==
LOC: ED 09:58 → MED 16:35 → OBSVTOIN 03-05 15:44
PROVIDERS: ADMIT Internal Medicine; ATTEND Internal Medicine
DX: A41.51 Sepsis due to Escherichia coli [E. coli] (principal); F19.939 Other psychoactive substance use, unspecified with withdrawal, unspecified; E87.1 Hypo-osmolality and hyponatremia; G90.50 Complex regional pain syndrome I, unspecified; M48.54XA Collapsed vertebra, not elsewhere classified, thoracic region, initial encounter for fracture; F11.23 Opioid dependence with withdrawal; F32.9 Major depressive disorder, single episode, unspecified; K21.9 Gastro-esophageal reflux disease without esophagitis; J44.9 Chronic obstructive pulmonary disease, unspecified; F17.210 Nicotine dependence, cigarettes, uncomplicated; I10 Essential (primary) hypertension; G43.909 Migraine, unspecified, not intractable, without status migrainosus; F41.0 Panic disorder [episodic paroxysmal anxiety]; E87.6 Hypokalemia; B18.2 Chronic viral hepatitis C; F10.10 Alcohol abuse, uncomplicated; Z59.0 Homelessness; Z90.710 Acquired absence of both cervix and uterus; Z88.1 Allergy status to other antibiotic agents; Z82.49 Family history of ischemic heart disease and other diseases of the circulatory system; Z56.0 Unemployment, unspecified; Z82.3 Family history of stroke
CPT/HCPCS: 36415; 71046; 71275; 72070; 72125; 72131; 72146; 76705; 80048; 80053; 81003; 81015; 83605; 84484; 85025; 85379; 85610; 85730; 86140; 87040; 87077; 87086; 87186; 99283; A9270-GY; G0378; G8978-GP-CH; G8979-GP-CH; G8980-GP-CH; J0696; J1650; J1885; J2060; J2405; J2543; Q9967

== ENCOUNTER 2019-03-12 09:45 | Emergency (ER) | payer OTHER ==
[2019-03-12] MEDS ORDERED: Ketorolac *IM* INJ* 60 MG/2 ML VIAL IM ONE (11:04)
[2019-03-12] MEDS ORDERED: Baclofen TAB* 10 MG PO ONE (12:11)
--- NOTE | 2019-03-12 12:19 | ED ---
Back Pain - HPI Summary HPI Summary: Patient presents to the ED with chief complaint of right-sided back pain. She is a frequent for this through to the ED and was recently admitted for overdose of her pain medications. She is requesting pain medications on arrival. She states she fell approximately 1 month ago and has had continuing right sided scapular pain since that time. She denies fevers, sweats, chills, SOB, CP. She is tearful on arrival and appears very anxious. - History of Current Complaint Chief Complaint: EDBackInjuryPain Stated Complaint: BACK PAIN PER EMS Time Seen by Provider: 03/12/19 10:03 Hx Obtained From: Patient Onset/Duration: Sudden Onset Onset/Duration: Started Hours Ago Timing: Constant Back Pain Location: Is Discrete @ - right sided scapular pain Severity Initially: Moderate Severity Currently: Moderate Pain Intensity: 10 Character: Aching Aggravating Symptom(s): Movement, Lifting Alleviating Symptom(s): Rest, Position Associated Signs And Symptoms: Positive: Negative - Risk Factors AAA Risk Factors: Negative TAD Risk Factors: Negative Cauda Equina Risk Factors: Negative - Allergies/Home Medications Allergies/Adverse Reactions: Allergies Allergy/AdvReac Type Severity Reaction Status Date / Time levofloxacin [From Levaquin] Allergy Severe Restless Verified 03/12/19 09:54 leg syndrome Home Medications: Home Medications Ibuprofen 400 - 600 mg PO Q8H PRN 03/12/19 [History Confirmed 03/12/19] Pantoprazole Sodium [Protonix] 40 mg PO DAILY 03/12/19 [History Confirmed ] clonazePAM TAB(*) [Klonopin TAB(*)] 0.5 mg PO TID PRN MDD 3 03/12/19 [History Confirmed 03/12/19] hydrOXYzine HCl [Hydroxyzine HCl] 25 mg PO BID PRN 03/12/19 [History Confirmed 03/12/19] PMH/Surg Hx/FS Hx/Imm Hx Previously Healthy: Yes Endocrine/Hematology History: Denies: Hx Diabetes, Hx Thyroid Disease Cardiovascular History: Reports: Hx Hypertension - ON MEDICATION FOR Denies: Hx Pacemaker/ICD Respiratory History: Denies: Hx Asthma, Hx Chronic Obstructive Pulmonary Disease (COPD) GI History: Reports: Hx Gastroesophageal Reflux Disease, Hx Irritable Bowel - POSSIBLY Denies: Hx Ulcer History: Denies: Hx Kidney Stones, Hx Renal Disease Musculoskeletal History: Reports: Hx Orthopedic Injury - injured back in fall earlier in 2019, Other Musculoskeletal History - RSD Denies: Hx Back Problems Sensory History: Reports: Hx Contacts or Glasses - glasses, Hx Hearing Problem - some hearing loss, no HAs Denies: Hx Hearing Aid Opthamlomology History: Reports: Hx Contacts or Glasses - glasses Neurological History: Reports: Hx Headaches - TWICE A WEEK, Hx Migraine - HX OF- TREATS WITH REST, DARK ROOM, ibuprofen Denies: Hx Seizures Psychiatric History: Reports: Hx Anxiety - panic disorder, Hx Depression - RECENTLY- ON MEDICATION FOR, Hx Panic Disorder - Cancer History Hx Chemotherapy: No - Surgical History Surgery Procedure, Year, and Place: laparoscopy, hysterectomy (2005), D&C. WISDOM TEETH EXTRACTED AGE 14 Hx Anesthesia Reactions: No - Immunization History Hx Pertussis Vaccination: No Immunizations Up to Date: Yes Infectious Disease History: No Infectious Disease History: Reports: Hx Hepatitis - C Denies: Hx Clostridium Difficile, Hx Human Immunodeficiency Virus (HIV), Hx of Known/Suspected MRSA, Hx Shingles, Hx Tuberculosis, Hx Known/Suspected VRE, Hx Known/Suspected VRSA, History Other Infectious Disease, Traveled Outside the [place] in Last 30 Days - Family History Known Family History: Positive: Hypertension, Other - CVA Negative: Cardiac Disease, Diabetes - Social History Occupation: Unemployed Lives: Alone Alcohol Use: None Alcohol Amount: last drink approx 1 week ago, pt states she quit Hx Substance Use: No Substance Use Type: Reports: Marijuana, Prescribed Substance Use Comment - Amount & Last Used: OCCASIONAL Hx Tobacco Use: Yes Smoking Status (MU): Heavy Every Day Tobacco Smoker Type: Cigarettes Amount Used/How Often: 1 PPD X 30 YEARS Length of Time of Smoking/Using Tobacco: 33 YEARS Have You Smoked in the Last Year: No Review of Systems Constitutional: Negative Negative: Fever, Chills, Fatigue, Skin Diaphoresis Negative: Palpitations, Chest Pain Negative: Shortness Of Breath, Cough Negative: Abdominal Pain, Vomiting, Diarrhea, Nausea Genitourinary: Negative Positive: no symptoms reported, see HPI Positive: Arthralgia - right scapular pain Neurological: Negative All Other Systems Reviewed And Are Negative: Yes Physical Exam Triage Information Reviewed: Yes Vital Signs On Initial Exam: Initial Vitals Temp Pulse Resp BP Pulse Ox 98.0 F 113 17 145/102 97 03/12/19 09:51 03/12/19 09:51 03/12/19 09:51 03/12/19 09:51 03/12/19 09:51 Vital Signs Reviewed: Yes Appearance: Positive: Well-Appearing, Well-Nourished Skin: Positive: Warm, Skin Color Reflects Adequate Perfusion Head/Face: Positive: Normal Head/Face Inspection Neck: Positive: Supple Respiratory/Lung Sounds: Positive: Clear to Auscultation, Breath Sounds Present Cardiovascular: Positive: RRR, Pulses are Symmetrical in both Upper and Lower Extremities Musculoskeletal: Positive: Pain @ - right scapula pain Neurological: Positive: Speech Normal Psychiatric: Positive: Anxious AVPU Assessment: Alert Diagnostics - Vital Signs Vital Signs Temp Pulse Resp BP Pulse Ox 03/12/19 09:51 98.0 F 113 17 145/102 97 - Laboratory Lab Statement: Any lab studies that have been ordered have been reviewed, and results considered in the medical decision making process. Back Pain Course/Dx - Course Course Of Treatment: During core stream, the patient is evaluated for right- sided scapular pain. She states she's had this pain since her fall partly 1 month ago. There was a thorough workup obtained including x-rays and CT scans. CTA negative for any acute findings. On today's visit, patient was very tearful on arrival, however became calm following speaking with the provider. I have stated she will not be getting pain control in the form of opioids today due to her history, however I have agreed to give her Toradol. She is given Toradol 30 mg IM and a prescription is sent. She is also given 1 baclofen while in the ED. She appears well. Nontoxic. She does not appear to be in withdrawal. - Diagnoses Provider Diagnoses: Back pain, Request for narcotic pain medication Discharge - Sign-Out/Discharge Documenting (check all that apply): Patient Departure Patient Received Moderate/Deep Sedation with Procedure: No - Discharge Plan Condition: Stable Disposition: HOME Prescriptions: Ketorolac TAB * [Toradol TAB *] 10 mg PO Q6H #16 tab Referrals: Yoli Bustos MD [Primary Care Provider] - Additional Instructions: Please seek further care through your PCP You have been given a 4 days supply of toradol This may be used up to four times daily DO NOT TAKE OTHER NSAIDS, IBUPROFEN OR MOTRIN WHILE TAKING THIS MEDICATION Moist heat pads to the area - Billing Disposition and Condition Condition: STABLE Disposition: Home
[2019-03-12 12:52] VITALS: BP 114/81
== END 2019-03-12 12:51 | disposition home or self-care (01) ==
LOC: ED 09:45
DX: M54.9 Dorsalgia, unspecified (principal); I10 Essential (primary) hypertension; K21.9 Gastro-esophageal reflux disease without esophagitis; F17.210 Nicotine dependence, cigarettes, uncomplicated; Z88.8 Allergy status to other drugs, medicaments and biological substances; Z79.899 Other long term (current) drug therapy
CPT/HCPCS: 96372; 99283; A9270-GY; J1885

== ENCOUNTER 2019-04-16 18:28 | Emergency (ER) | payer OTHER ==
--- NOTE | 2019-04-16 19:10 | ED ---
Back Pain - HPI Summary HPI Summary: Patient complains of right sided lower back pain that she woke up with today. History of chronic back pain. Patient is ambulatory. No relief with Tylenol and naproxen. Denies fever, cough, sore throat, CP, SOB, N/V/D, abdominal pain , change, change in BM, vaginal symptoms, IV drug use. - History of Current Complaint Chief Complaint: EDBackInjuryPain Stated Complaint: BACK PAIN PER PT Time Seen by Provider: 04/16/19 19:06 Hx Obtained From: Patient Onset/Duration: Sudden Onset, Lasting Hours Onset/Duration: Started Hours Ago Timing: Constant Back Pain Location: Is Discrete @ Severity Initially: Severe Severity Currently: Severe Pain Intensity: 8 Pain Scale Used: 0-10 Numeric Character: Aching, Throbbing Aggravating Symptom(s): Movement Alleviating Symptom(s): Rest, Position Associated Signs And Symptoms: Positive: Negative - Allergies/Home Medications Allergies/Adverse Reactions: Allergies Allergy/AdvReac Type Severity Reaction Status Date / Time [facility] Allergy Severe Restless Verified 04/16/19 19:15 leg syndrome Home Medications: Home Medications Buprenorphine TAB* [Subutex TAB*] 8 mg SL BID 04/16/19 [History Confirmed ] PMH/Surg Hx/FS Hx/Imm Hx Endocrine/Hematology History: Denies: Hx Diabetes, Hx Thyroid Disease Cardiovascular History: Reports: Hx Hypertension - ON MEDICATION FOR Denies: Hx Pacemaker/ICD Respiratory History: Denies: Hx Asthma, Hx Chronic Obstructive Pulmonary Disease (COPD) GI History: Reports: Hx Gastroesophageal Reflux Disease, Hx Irritable Bowel - POSSIBLY Denies: Hx Ulcer History: Denies: Hx Kidney Stones, Hx Renal Disease Musculoskeletal History: Reports: Hx Orthopedic Injury - injured back in fall earlier in 2019, Other Musculoskeletal History - RSD Denies: Hx Back Problems Sensory History: Reports: Hx Contacts or Glasses - glasses, Hx Hearing Problem - some hearing loss, no HAs Denies: Hx Hearing Aid Opthamlomology History: Reports: Hx Contacts or Glasses - glasses Neurological History: Reports: Hx Headaches - TWICE A WEEK, Hx Migraine - HX OF- TREATS WITH REST, DARK ROOM, ibuprofen Denies: Hx Seizures Psychiatric History: Reports: Hx Anxiety - panic disorder, Hx Depression - RECENTLY- ON MEDICATION FOR, Hx Panic Disorder - Cancer History Hx Chemotherapy: No - Surgical History Surgery Procedure, Year, and Place: laparoscopy, hysterectomy (2006), D&C. WISDOM TEETH EXTRACTED AGE 14 Hx Anesthesia Reactions: No Infectious Disease History: No Infectious Disease History: Reports: Hx Hepatitis - C Denies: Hx Clostridium Difficile, Hx Human Immunodeficiency Virus (HIV), Hx of Known/Suspected MRSA, Hx Shingles, Hx Tuberculosis, Hx Known/Suspected VRE, Hx Known/Suspected VRSA, History Other Infectious Disease, Traveled Outside the [place] in Last 30 Days - Family History Known Family History: Positive: Hypertension, Other - CVA Negative: Cardiac Disease, Diabetes - Social History Alcohol Use: None Alcohol Amount: last drink approx 1 week ago, pt states she quit Hx Substance Use: No Substance Use Type: Reports: Marijuana, Prescribed Substance Use Comment - Amount & Last Used: OCCASIONAL Hx Tobacco Use: Yes Smoking Status (MU): Heavy Every Day Tobacco Smoker Type: Cigarettes Amount Used/How Often: 1 PPD X 30 YEARS Length of Time of Smoking/Using Tobacco: 33 YEARS Have You Smoked in the Last Year: No Review of Systems Constitutional: Negative Eyes: Negative ENT: Negative Cardiovascular: Negative Respiratory: Negative Gastrointestinal: Negative Genitourinary: Negative Musculoskeletal: Other Skin: Negative Neurological: Negative Psychological: Normal All Other Systems Reviewed And Are Negative: Yes Physical Exam - Summary Physical Exam Summary: Tender to palpation in paraspinal muscles of right-sided lower back. No ecchymosis, erythema, deformity, masses, extra warmth noted. PMS intact distally in bilateral lower extremities. Triage Information Reviewed: Yes Vital Signs On Initial Exam: Initial Vitals Temp Pulse Resp BP Pulse Ox 99.2 F 111 18 148/120 98 04/16/19 18:31 04/16/19 18:31 04/16/19 18:31 04/16/19 18:31 04/16/19 18:31 Vital Signs Reviewed: Yes Appearance: Positive: Well-Appearing Skin: Positive: Warm Head/Face: Positive: Normal Head/Face Inspection Eyes: Positive: Normal Neck: Positive: Supple Respiratory/Lung Sounds: Positive: Clear to Auscultation Cardiovascular: Positive: Normal Abdomen Description: Positive: Nontender Musculoskeletal: Positive: Normal Neurological: Positive: Normal Psychiatric: Positive: Normal AVPU Assessment: Alert - [place] Coma Scale Best Eye Response: 4 - Spontaneous Best Motor Response: 6 - Obeys Commands Best Verbal Response: 5 - Oriented Coma Scale Total: 15 Diagnostics - Vital Signs Vital Signs Temp Pulse Resp BP Pulse Ox 04/16/19 18:31 99.2 F 111 18 148/120 98 - Laboratory Lab Statement: Any lab studies that have been ordered have been reviewed, and results considered in the medical decision making process. Back Pain Course/Dx - Course Course Of Treatment: Patient complains of right sided lower back pain that she woke up with today. History of chronic back pain. Patient is ambulatory. No relief with Tylenol and naproxen. Denies fever, cough, sore throat, CP, SOB, N/ V/D, abdominal pain, change, change in BM, vaginal symptoms, IV drug use. Vital signs within normal limits. Pain improved with Valium 5 mg by mouth, Toradol, and lidocaine patch. - Diagnoses Provider Diagnoses: Acute back pain Discharge - Sign-Out/Discharge Documenting (check all that apply): Patient Departure Patient Received Moderate/Deep Sedation with Procedure: No - Discharge Plan Condition: Stable Disposition: HOME Patient Education Materials: Back Pain (ED) Referrals: Yoli Bustos MD [Primary Care Provider] - Additional Instructions: Up with primary care. Return to the ED for any new or worsening symptoms. - Billing Disposition and Condition Condition: STABLE Disposition: Home
[2019-04-16] MEDS ORDERED: Ketorolac INJ* 30 MG/ML 1 ML VIAL IM ONE (19:16)
[2019-04-16] MEDS ORDERED: Diazepam TAB(*) 5 MG PO ONE (19:16)
[2019-04-16] MEDS ORDERED: Lidocaine PATCH 5%* 1 PATCH TRANSDERM SCH (20:00)
[2019-04-16 20:12] VITALS: BP 160/97
[2019-04-17] MEDS ORDERED: Lidocaine Patch REMOVE* 1 NOTE MISC PATCH OFF SCH (02:00)
== END 2019-04-16 20:11 | disposition home or self-care (01) ==
LOC: ED 18:28
DX: M54.9 Dorsalgia, unspecified (principal); I10 Essential (primary) hypertension; F41.9 Anxiety disorder, unspecified; F32.9 Major depressive disorder, single episode, unspecified; F17.210 Nicotine dependence, cigarettes, uncomplicated; Z79.899 Other long term (current) drug therapy; Z88.1 Allergy status to other antibiotic agents
CPT/HCPCS: 96372; 99282; A9270-GY; J1885

== ENCOUNTER 2019-05-15 15:43 | Emergency (ER) | payer OTHER ==
--- NOTE | 2019-05-15 17:21 | ED ---
Back Pain - HPI Summary HPI Summary: The patient is a 48 y/o F presenting to [facility] from [facility] where she has been for 7 days - pt states she is there for poly substance use disorder and alcohol dependence. Pt states she has been on Klonopin for many years and wants to continue this med. States was told she could at [facility], but now told they don't have any. Pt states she is feeling like she is withdrawing - anxious and shaky. Pt denies cp, sob, abd pain. mild nausea, no vomiting. Pt also with chronic back pain following a fall and fracture > 1 year ago. Patients medications reviewed this visit. Allergies noted. - History of Current Complaint Chief Complaint: EDBackInjuryPain Stated Complaint: BACK PAIN PER PT Time Seen by Provider: 05/15/19 17:14 Hx Obtained From: Patient, Other: - Emi Easley ([facility]), IStop reviewed Onset/Duration: Still Present Onset/Duration: Still Present Timing: Constant Back Pain Location: Is Diffuse Severity Initially: Moderate Severity Currently: Severe Pain Intensity: 10 Pain Scale Used: 0-10 Numeric Character: Sharp Aggravating Symptom(s): Movement Alleviating Symptom(s): Nothing Associated Signs And Symptoms: Positive: Other - Negative: diaphoresis, nausea, vomiting. - Allergies/Home Medications Allergies/Adverse Reactions: Allergies Allergy/AdvReac Type Severity Reaction Status Date / Time levofloxacin [From Levaquin] Allergy Severe Restless Verified 04/16/19 19:15 leg syndrome Home Medications: Home Medications Acetaminophen TAB* [Tylenol TAB*] 325 - 650 mg PO Q6H PRN 05/15/19 [History Confirmed 05/15/19] Aspirin TAB* [Aspirin 325 MG TAB*] 325 mg PO DAILY PRN 05/15/19 [History Confirmed 05/15/19] Bismuth Subsalicylate [Gobles Bismuth] 524 mg PO Q1HR PRN 05/15/19 [History Confirmed 05/15/19] Calcium Carbonate CHEW TAB* [Tums*] 1,000 mg PO BID PRN 05/15/19 [History Confirmed 05/15/19] Docusate CAP* [Colace Cap*] 100 mg PO BID PRN 05/15/19 [History Confirmed ] Eucalyptus/Menthol [[place] Cough Drops] 1 jabier PO Q2HR PRN 05/15/19 [History Confirmed 05/15/19] Lidocaine [Aspercreme Lidocaine Max] 4 % TOPICAL DAILY 05/15/19 [History Confirmed 05/15/19] Magnesium Hydroxide LIQ* [Milk of Magnesia LIQ*] 30 ml PO DAILY PRN 05/15/19 [ History Confirmed 05/15/19] Melatonin 5 mg PO BEDTIME PRN 05/15/19 [History Confirmed 05/15/19] Multivitamins/Minerals TAB* [Theragran/minerals TAB*] 1 tab PO DAILY 05/15/19 [ History Confirmed 05/15/19] Nicotine GUM* (NF) [Nicotine GUM*] 2 mg PO Q2H PRN 05/15/19 [History Confirmed 05/15/19] Nicotine PATCH 14 MG/24 HR* 14 mg TRANSDERM DAILY 05/15/19 [History Confirmed ] Polyethylene Glycol 3350* [Miralax*] 17 gm PO DAILY PRN 05/15/19 [History Confirmed 05/15/19] Saline NASAL SPRAY 0.65%* [Sodium Chloride 0.65% Nasal Briggs*] 1 spray BOTH NARES Q4H PRN 05/15/19 [History Confirmed 05/15/19] cloNIDine TAB* [Catapres 0.1 MG TAB*] 0.1 mg PO DAILY 05/15/19 [History Confirmed 05/15/19] diPHENhydraMINE PO* [Benadryl PO 25 MG TAB*] 25 mg PO .Q4-6H PRN 05/15/19 [ History Confirmed 05/15/19] guaiFENesin ER TAB [Mucinex*] 1,200 mg PO BID PRN 05/15/19 [History Confirmed ] hydrOXYzine HCL TAB* [Atarax 25 MG TAB*] 25 mg PO QID PRN 05/15/19 [History Confirmed 05/15/19] PMH/Surg Hx/FS Hx/Imm Hx Previously Healthy: Yes Endocrine/Hematology History: Denies: Hx Diabetes, Hx Thyroid Disease Cardiovascular History: Reports: Hx Hypertension - ON MEDICATION FOR Denies: Hx Pacemaker/ICD Respiratory History: Denies: Hx Asthma, Hx Chronic Obstructive Pulmonary Disease (COPD) GI History: Reports: Hx Gastroesophageal Reflux Disease, Hx Irritable Bowel - POSSIBLY Denies: Hx Ulcer History: Denies: Hx Kidney Stones, Hx Renal Disease Musculoskeletal History: Reports: Hx Orthopedic Injury - injured back in fall earlier in 2019, Other Musculoskeletal History - RSD Denies: Hx Back Problems Sensory History: Reports: Hx Contacts or Glasses - glasses, Hx Hearing Problem - some hearing loss, no HAs Denies: Hx Hearing Aid Opthamlomology History: Reports: Hx Contacts or Glasses - glasses Neurological History: Reports: Hx Headaches - TWICE A WEEK, Hx Migraine - HX OF- TREATS WITH REST, DARK ROOM, ibuprofen Denies: Hx Seizures Psychiatric History: Reports: Hx Anxiety - panic disorder, Hx Depression - RECENTLY- ON MEDICATION FOR, Hx Panic Disorder - Cancer History Hx Chemotherapy: No - Surgical History Surgical History: Yes Surgery Procedure, Year, and Place: laparoscopy, hysterectomy (2005), D&C. WISDOM TEETH EXTRACTED AGE 14 Hx Anesthesia Reactions: No Infectious Disease History: Yes Infectious Disease History: Reports: Hx Hepatitis - C Denies: Hx Clostridium Difficile, Hx Human Immunodeficiency Virus (HIV), Hx of Known/Suspected MRSA, Hx Shingles, Hx Tuberculosis, Hx Known/Suspected VRE, Hx Known/Suspected VRSA, History Other Infectious Disease, Traveled Outside the [place] in Last 30 Days - Family History Known Family History: Positive: Hypertension, Other - CVA, Non-Contributory Negative: Cardiac Disease, Diabetes - Social History Occupation: Unemployed Lives: Longterm - [facility] Alcohol Use: None Alcohol Amount: last drink approx 1 week ago, pt states she quit Hx Substance Use: No Substance Use Type: Reports: Marijuana, Prescribed Substance Use Comment - Amount & Last Used: OCCASIONAL Hx Tobacco Use: Yes Smoking Status (MU): Heavy Every Day Tobacco Smoker Type: Cigarettes Amount Used/How Often: 1 PPD X 30 YEARS Length of Time of Smoking/Using Tobacco: 33 YEARS Have You Smoked in the Last Year: No Review of Systems Positive: Other - "withdrawal symptoms" Positive: Other - back pain radiating to bilateral legs, ankles, and shoulders All Other Systems Reviewed And Are Negative: Yes Physical Exam - Summary Physical Exam Summary: Vital Signs Reviewed: Yes A+Ox3, no distress Eyes: Conjunctiva Clear, OBIE. EOM intact and full ENT: Hearing grossly normal TM x 2 clear, mmoist, uvula midline, no exudate, no erythema Neck: Positive: Supple Respiratory: Positive: No respiratory distress, No accessory muscle use + CTA throughout no w/r Cardiovascular: RRR nl s1, s2 no m/r CBT <2 sec abd soft + BS nt/nd no guarding, no distension Musculoskeletal Exam: MOHAMUD x 4 without difficulty Strength Intact, ROM Intact Neurological: Positive: Alert, + sensation throughout Psychological: Positive: Normal Response To sales data analyst Skin: Positive: no rash, no ecchymosis Triage Information Reviewed: Yes Vital Signs On Initial Exam: Initial Vitals Temp Pulse Resp BP Pulse Ox 98.1 F 89 15 151/106 99 05/15/19 15:44 05/15/19 15:44 05/15/19 15:44 05/15/19 15:44 05/15/19 15:44 Vital Signs Reviewed: Yes Diagnostics - Vital Signs Vital Signs Temp Pulse Resp BP Pulse Ox 05/15/19 15:44 98.1 F 89 15 151/106 99 - Laboratory Lab Statement: Any lab studies that have been ordered have been reviewed, and results considered in the medical decision making process. Re-Evaluation - Re-Evaluation First Eval Re-Evaluation Time: 18:06 Comment: We discussed plan for treatment and discharge following consultation with Raquel Easley. Back Pain Course/Dx - Course Course Of Treatment: Pt presents requesting klonopin - is at [facility] and states they "don't have any" pt has been there x 7 days -states feels like withdrawing. VSS. pt without focal findings. I reviewed MAR and istop - pt has been receiving klonopin at [facility]. I spoke with Raquel Easley - will give 1 dose her at ED - she will make sure pt has available at [facility]. pt udated with plan - will discharge to return to [facility]. forms signed - Diagnoses Provider Diagnoses: Anxiety - Provider Notifications Discussed Care Of Patient With: Emi Easley - [facility] Time Discussed With Above Provider: 18:00 Instructed by Provider To: Other - Raquel states that the pt has been receiving Klonopin, but she will evaluate the pt tonight at [facility]. Discharge ED - Sign-Out/Discharge Documenting (check all that apply): Patient Departure - Patient will be discharged home. Patient Received Moderate/Deep Sedation with Procedure: No - Discharge Plan Condition: Stable Disposition: HOME Patient Education Materials: Chronic Pain (ED), Anxiety (ED) Referrals: Yoli Bustos MD [Primary Care Provider] - [facility],. [Z.BUSINESS, APPLICATION, OTHER] - [facility]idential Facility [Outside] Additional Instructions: - you were given a dose of Klonopin here. The medical staff at [facility] will further evaluate your needs and access to Klonopin at [facility] - okay to take muscle relaxants, motrin and tylenol as prescribed - discuss your medical needs with your provider at [facility] as well as at the [facility] clinic - Billing Disposition and Condition Condition: STABLE Disposition: Home - Attestation Statements Document Initiated by Thaibe: Yes Documenting Scribe: Vi Palacios Provider For Whom Kathia is Documenting (Include Credential): Dr. Carolina Frank MD Scribe Attestation: I, Vi Palacios scribed for Dr. Carolina Frank MD on 05/21/19 at 2005. Scribe Documentation Reviewed: Yes Provider Attestation: The documentation as recorded by the scribe, Vi Palacios accurately reflects the service I personally performed and the decisions made by me, Dr. Carolina Frank MD Status of Scribe Document: Viewed
[2019-05-15] MEDS ORDERED: clonazePAM TAB(*) 0.5 MG PO ONE (18:11)
[2019-05-15 18:29] VITALS: BP 139/106
== END 2019-05-15 18:15 | disposition home or self-care (01) ==
LOC: ED 15:43
DX: M54.9 Dorsalgia, unspecified (principal); G89.29 Other chronic pain; F41.9 Anxiety disorder, unspecified; I10 Essential (primary) hypertension; K21.9 Gastro-esophageal reflux disease without esophagitis; F32.9 Major depressive disorder, single episode, unspecified; F17.210 Nicotine dependence, cigarettes, uncomplicated; Z79.899 Other long term (current) drug therapy; Z88.1 Allergy status to other antibiotic agents
CPT/HCPCS: 99282; A9270-GY